=== PATIENT | female | born 1975 | race Two or more races ===

== ENCOUNTER 2024-08-14 16:00 | Inpatient (IN) | payer MEDICAID ==
[~2024-08-14] VITALS: Ht 162.6 cm; Wt 92.7 kg
[~2024-08-14 16:00] MED LIST: ACET-1603 PO
[2024-08-14] MEDS: MAALOX PLUS or MAALOX 30 ML PO ONE (16:30)
[2024-08-14] MEDS: LIDOCAINE VISCOUS 2% 15ML UD PO ONE (16:30)
[2024-08-14] MEDS: ONDANSETRON ODT 4 MG TAB PO ONE (16:30)
[2024-08-14] MEDS: DONNATAL 5ml ORAL Elix (BELLADONNA ALK-PHENOBARB) PO ONE (16:30)
--- NOTE | 2024-08-14 16:34 | ED.PDOC ---
GI ASSESSMENT HPI Comments 49-year-old female presents with a chief complaint of abdominal pain x 2 days with associated back pain. Patient states that her pain is localized to her suprapubic region, radiating to her lower back, and rates her pain a /10. Patient mentions that she recently had her Ozempic dosage increased and believes that may be the cause of her pain. Patient mentions that she went to urgent care first and provided a urine sample, and mentions that her urine was orange tinged. No other symptoms or modifying factors present at this time. Chief Complaint: Abdominal Pain Time Seen by MD: 16:17 Primary Care Provider: LOREN Osorio Notes: Medications, Allergies Allergies: Coded Allergies: NO KNOWN ALLERGIES (Unverified , 03/08/10) Home Meds Reported Medications Acetaminophen W/ Codeine (Tylenol/Codeine #3) #3 Tab, PO 08/30/11 Information Source: Patient Mode of Arrival: Ambulatory Timing: Days Duration: Since onset Prehospital treatment: None Quality: Cramping Vomitus: None Stool: Normal Severity: Moderate Recent: Other (Ozempic Dosage Increased ) Recent Hx of: None Pain Location: Suprapubic Associated sign and symptoms: Abdominal Pain Past Medical History PAST MEDICAL HISTORY: Anemia Surgical History: RESIDENT INTERN History: No Pertinent RESIDENT INTERN History Family History Family History: Unobtainable Social History Smoker: Non-Smoker Alcohol: Occasionally Drugs: Denies Drug Use Lives In: Home Constitutional: denies: chills, diaphoresis, fatigue, fever, malaise, sweats, weakness, others EENTM: denies: blurred vision, double vision, ear bleeding, ear discharge, ear drainage, ear pain, ear ringing, eye pain, eye redness, hearing loss, mouth pain, mouth swelling, nasal discharge, nose bleeding, nose congestion, nose pain, photophobia, tearing, throat pain, throat swelling, voice changes, others Respiratory: denies: cough, hemoptysis, orthopnea, SOB at rest, shortness of breath, SOB with excertion, stridor, wheezing, others Cardiovascular: denies: chest pain, dizzy spells, diaphoresis, Dyspnea on exertion, edema, irregular heart beat, left arm pain, lightheadedness, palpitations, PND, syncope, others Gastrointestinal: reports: abdominal pain; denies: abdomen distended, blood streaked bowels, constipated, diarrhea, dysphagia, difficulty swallowing, hematemesis, melena, nausea, poor appetite, poor fluid intake, rectal bleeding, rectal pain, vomiting, others Genitourinary: denies: abnormal vagina bleeding, burning, dyspareunia, dysuria, flank pain, frequency, hematuria, incontinence, pain, , vagina discharge, urgency, others Neurological: denies: dizziness, fainting, headache, left sided numbness, left sided weakness, numbness, paresthesia, pre-existing deficit, right sided numbnes s, right sided weakness, seizure, speech problems, tingling, tremors, weakness, others Musculoskeletal: reports: back pain; denies: gout, joint pain, joint swelling, muscle pain, muscle stiffness, neck pain, others Integumetry: denies: bruises, change in color, change in hair/nails, dryness, laceration, lesions, lumps, rash, wounds, others Allergic/Immunocompromised: denies: Difficulty Healing, Frequent Infections, Hives, Itching, others Hematologic/Lymphatic: denies: anemia, blood clots, easy bleeding, easy bruising, swollen glands, others Endocrine: denies: excessive hunger, excessive sweating, excessive thirst, excessive urination, flushing, intolerance to cold, intolerance to heat, unexplained weight gain, unexplained weight loss, others Psychiatric: denies: anxiety, bipolar disorder, depression, hopeless, panic disorder, schizophrenia, sleepless, suicidal, others All Other Systems: Reviewed and Negative Physical Exam General Appearance: Moderate Distress, Normal HEENT: Normal ENT Inspection Neck: NOT DONE Respiratory: NOT DONE Cardiovascular: NOT DONE Breast Exam: Deferred Gastrointestinal: Soft, Suprapubic, Tenderness Genitalia: Deferred Pelvic: Deferred Rectal: Deferred Extremities: No calf tenderness, Normal capillary refill, Normal inspection, Normal range of motion, Non-tender, No pedal edema Neurologic: Alert, solid waste technician II-XII nml as Tested, No Motor Deficits, Normal Affect, Normal Mood, No Sensory Deficits Cerebellar Function: NOT DONE Reflexes: NOT DONE Skin: Dry, Normal Color Lymphatic: NOT DONE Was a procedure done? Was a procedure done?: No GI differential Dx Differential Diagnosis: Appendicitis, Bowel Obstruction, Cholangitis, Cholecystitis, Constipation, Diverticular disease, GI hemorrhage, Hernia, Ischemic Bowel, Urinary Obstruction, UTI X-Ray, Labs, Meds, VS Vital Signs Date Time Temp Pulse Resp B/P (MAP) Pulse Ox O2 Delivery O2 Flow Rate FiO2 08/14/24 18:41 97 18 97 Room Air* 0 21 08/14/24 18:36 97 16 87/45 08/14/24 17:04 125 17 96 Room Air 08/14/24 17:04 98.5 125 17 106/56 (73) 96 98.5 08/14/24 16:24 99.7 124 15 107/72 (84) 99 Lab Test 08/14/24 16:51 08/14/24 16:00 Range/Units White Blood Count 17.8 H 4.4-10.8 10^3/uL Red Blood Count 5.52 H 4.0-5.20 10^6/uL Hemoglobin 15.9 12.2-16.2 g/dL Hematocrit 47.7 H 36.0-46.0 % Mean Corpuscular Volume 86.5 80.0-100.0 fL Mean Corpuscular Hemoglobin 28.9 28.0-32.0 pg Mean Corpuscular Hemoglobin Concent 33.4 32.0-36.0 g/dL Red Cell Distribution Width 14.1 11.8-14.3 % Platelet Count 411 140-450 10^3/uL Mean Platelet Volume 8.6 6.9-10.8 fL Neutrophils (%) (Auto) 72.6 37.0-80.0 % Lymphocytes (%) (Auto) 18.1 10.0-50.0 % Monocytes (%) (Auto) 8.2 0.0-12.0 % Eosinophils (%) (Auto) 0.5 0.0-7.0 % Basophils (%) (Auto) 0.6 0.0-2.0 % Neutrophils # (Auto) 12.9 H 1.6-8.6 10 ^3/uL Lymphocytes # (Auto) 3.2 0.4-5.4 10 ^3/uL Monocytes # (Auto) 1.5 H 0-1.3 10 ^3/uL Eosinophils # (Auto) 0.1 0-0.8 10 ^3/uL Basophils # (Auto) 0.1 0-0.2 10 ^3/uL Nucleated Red Blood Cells 0.0 % Sodium Level 138 136-145 mmol/L Potassium Level 4.5 3.5-5.1 mmol/L Chloride Level 101 98-107 mmol/L Carbon Dioxide Level 29 20-31 mmol/L Anion Gap 8 5-15 Blood Urea Nitrogen 11 9-23 mg/dL Creatinine 0.99 0.550-1.02 mg/dL Glomerular Filtration Rate Calc 69 >90 mL/min BUN/Creatinine Ratio 11.1 10.0-20.0 Serum Glucose 111 H 74-106 mg/dL Lactic Acid Level 1.1 0.4-2.0 mmol/L Calcium Level 10.7 H 8.7-10.4 mg/dL Total Bilirubin 2.8 H 0.2-1.0 mg/dL Aspartate Amino Transferase (AST) 38 13-40 U/L Alanine Aminotransferase (ALT) 44 H 7-40 U/L Alkaline Phosphatase 130 H 46-116 U/L Troponin I High Sensitivity 3 L </=34 ng/L Total Protein 7.2 5.7-8.2 g/dL Albumin 4.6 3.2-4.8 g/dL Lipase 22 12-53 U/L Urine Color Dark-orange Yellow Urine Clarity Turbid H Clear Urine pH 6.0 5.0-9.0 Urine Specific Seltzer 1.029 1.001-1.035 Urine Protein 1+ H Negative Urine Ketones Trace Negative Urine Blood 1+ H Negative /uL Urine Nitrite Negative Negative Urine Bilirubin 1+ H Negative Urine Urobilinogen 4 H Negative mg/dL Urine Leukocyte Esterase 3+ Negative /uL Urine RBC 7 0 - 4 /hpf Urine Microscopic WBC 51 H 0-5 /HPF Urine Squamous Epithelial Cells Mod <5 /hpf Urine Bacteria Few H None Seen /hpf Urine Hyaline Casts Few 0 - 2 /lpf Urine Mucus Few None Seen Urine Glucose Trace Normal mg/dL Urine Test Negative Negative Current Medications Medications (Trade) Dose Ordered Sig/Andres Route Start Time Stop Time Status Last Admin Ondansetron HCl (Zofran Po) 4 mg ONCE ONCE PO 08/14/24 16:30 08/14/24 16:36 DC 08/14/24 16:30 Al Hydrox/Mg Hydrox/Simethicone (Maalox Plus) 30 ml ONCE ONCE PO 08/14/24 16:30 08/14/24 16:37 DC 08/14/24 16:30 Belladonna Alkaloids/ Phenobarbital ( Elixir) 5 ml ONCE ONCE PO 08/14/24 16:30 08/14/24 16:37 DC 08/14/24 16:30 Lidocaine HCl (Xylocaine 2% Viscous) 15 ml ONCE ONCE PO 08/14/24 16:30 08/14/24 16:37 DC 08/14/24 16:30 Ceftriaxone Sodium 50 ml @ 100 mls/hr ONCE ONCE IV 08/14/24 18:15 08/14/24 18:44 DC 08/14/24 18:36 Sodium Chloride 2,000 ml @ 1,000 mls/hr Q2H ONCE IV 08/14/24 18:45 08/14/24 20:44 DC 08/14/24 18:36 Ketorolac Tromethamine (Toradol Injection) 15 mg ONCE ONCE IV 08/14/24 20:00 08/14/24 20:01 DC 08/14/24 20:12 X-Ray, Labs, Meds, VS Comment This 49-year-old female presents secondary to suprapubic abdominal pain with question of radiation to bilateral lower back. She states she recently started Ozempic in taking medication, has intermittent cramping. She also endorses have a history UTI. However, she denies dysuria or urinary frequency. She states she has some discomfort with urination only. She endorses her current pain is more severe than previously. She took a 1 day course of antibiotics that she had from a previous UTI with worsening of her symptoms. As such, she presents here. She denied fever, chills, sweats, nausea or vomiting. Her UA is positive for leukocyte esterase and blood. It was suggestive of UTI. She was the 1 g of Rocephin. I spoke with radiologist just prior to shift change his states the patient has a soft tissue mass in the pelvis. He recommended a CT of the abdomen and pelvis with contrast. This was ordered. Patient was signed out to the oncoming physician. Time of 1ST Reevaluation: 16:47 Reevaluation 1ST: Unchanged Patient Education/Counseling: Diagnosis, Treatment, Prognosis Family Education/Counseling: Diagnosis, Treatment, Prognosis Departure 1 Departure Time of Disposition: 20:52 (Patient presented with abdominal pain that was concerning for possible appendicits, gastritis, cholecystitis, colitis, gastroenteritis, sbo, or orther possible surgical emergency. Data: 1. I ordered and reviewed the result of at least 3 labs including a CBC, BMP, and Urinalysis. 2. I independently interpreted the following tests: CT Abdoment and Pelvis is concerning for ovarian cancer .Risk:This patient has a high risk of morbidity due to further diagnostic testing or treatment and may suffer from an acute abdominal process disorder. Workup reveals concern for malignancy and patient should be admitted for further workup. and possible expert consultation. ) Impression: Primary Impression: Ovarian mass, right Additional Impression: Acute cystitis Qualified Codes: N30.01 - Acute cystitis with hematuria Disposition: ADMITTED INPATIENT Admit to: Med Surg Condition: Serious Critical Care Note Critical Care Time?: Yes Critical care comment: Intractable abdominal pain Authorized and Performed by: Alexy Barry MD Total critical care time: Approximately 34 minutes Due to a high probability of clinically significant, life threatening deterioration, the patient required my highest level of preparedness to intervene emergently and I personally spent this critical care time directly and personally managing the patient. This critical care time included obtaining a history; examining the patient; pulse oximetry; ordering and review of studies; arranging urgent treatment with development of a management plan; evaluation of patient's response to treatment; frequent reassessment; and, discussions with other providers. This critical care time was performed to assess and manage the high probability of imminent, life-threatening deterioration that could result in multi-organ failure. It was exclusive of separately billable procedures and treating other patients and teaching time. Please see my other sections and the rest of the note for further information on patient assessment and treatment. Stability Stability form required: No Heart Score Heart Score: Heart Score Response (Comments) Value History N/A 0 EKG N/A 0 Age N/A 0 Risk Factors N/A 0 Troponin N/A 0 Total 0 I personally scribed for SHEYLA RAMOS MD ([email or web address]) on 08/14/24 at 16:34. Electronically submitted by Pankaj Tiwari ([email or web address]). SHEYLA RAMOS MD Aug 14, 2024 16:34 ALEXY BARRY MD Aug 14, 2024 20:55
[2024-08-14 17:07] LABS: Basophils # (auto) 0.1 10 ^3/uL (0-0.2); Basophils % (auto) 0.6 % (0.0-2.0); Eosinophils # (auto) 0.1 10 ^3/uL (0-0.8); Eosinophils % (auto) 0.5 % (0.0-7.0); Hematocrit 47.7 % (36.0-46.0); Hemoglobin 15.9 g/dL (12.2-16.2); Lymphocytes # (auto) 3.2 10 ^3/uL (0.4-5.4); Lymphocytes % (auto) 18.1 % (10.0-50.0); Mean Corpuscular Hemoglobin 28.9 pg (28.0-32.0); Mean Corpuscular Hgb Conc. 33.4 g/dL (32.0-36.0); Mean Corpuscular Volume 86.5 fL (80.0-100.0); Monocytes # (auto) 1.5 10 ^3/uL (0-1.3); Monocytes % (auto) 8.2 % (0.0-12.0); Neutrophils # (auto) 12.9 10 ^3/uL (1.6-8.6); Neutrophils % (auto) 72.6 % (37.0-80.0); Platelet Count (auto) 411 10^3/uL (140-450); Red Blood Cells 5.52 10^6/uL (4.0-5.20); Red Cell Distribution Width 14.1 % (11.8-14.3); White Blood Cell 17.8 10^3/uL (4.4-10.8)
[2024-08-14 17:11] LABS: Urine Bacteria FEW /hpf (None Seen); Urine Blood 1+ /uL (Negative); Urine Clarity Turbid (Clear); Urine Color Dark-Orange (Yellow); Urine Hyaline Cast FEW /lpf (0 - 2); Urine Mucus FEW (None Seen); Urine Protein, UAD 1+ (Negative); Urine Specific Gravity 1.029 (1.001-1.035); Urine Squamous Epithelial Cell MOD /hpf (<5); Urine Urobilinogen 4 mg/dL (Negative); Urine WBC 51 /HPF (0-5)
[2024-08-14 17:19] LABS: Albumin 4.6 g/dL (3.2-4.8); Anion Gap 8 (5-15); Aspartate Aminotransferase 38 U/L (13-40); BUN/Creatinine Ratio 11.1 (10.0-20.0); Blood Urea Nitrogen 11 mg/dL (9-23); Carbon Dioxide 29 mmol/L (20-31); Chloride 101 mmol/L (98-107); Lipase 22 U/L (12-53); Potassium 4.5 mmol/L (3.5-5.1); Sodium 138 mmol/L (136-145)
[2024-08-14 17:20] LABS: Alanine Aminotransferase 44 U/L (7-40); Alkaline Phosphatase 130 U/L (46-116); Bilirubin, Total 2.8 mg/dL (0.2-1.0); Calcium 10.7 mg/dL (8.7-10.4); Glucose 111 mg/dL (74-106); Total Protein 7.2 g/dL (5.7-8.2)
[2024-08-14] MEDS ORDERED: cefTRIAXone W LIDOCAINE 1 GM IM IM ONE (17:30)
--- NOTE | 2024-08-14 18:03 | DVH ---
EXAM: CT Abdomen and Pelvis Without Intravenous Contrast CLINICAL INDICATION: pain TECHNIQUE: Axial computed tomography images of the abdomen and pelvis without intravenous contrast. This CT exam was performed using one or more of the following dose reduction techniques: automated exposure control, adjustment of the mA and/or kV according to patient size, and/or use of iterative r econstruction technique. CONTRAST: COMPARISON: None FINDINGS: LUNG BASES: Unremarkable. No mass. No consolidation. ABDOMEN: LIVER: Hepatomegaly with fatty infiltration. GALLBLADDER AND BILE DUCTS: Unremarkable. No calcified stones. No ductal dilation. PANCREAS: Unremarkable. No ductal dilation. SPLEEN: Unremarkable. No splenomegaly. ADRENALS: Unremarkable. No mass. KIDNEYS AND URETERS: Unremarkable. No obstructing stones. No hydronephrosis. STOMACH AND BOWEL: Unremarkable. No obstruction. No mucosal thickening. PELVIS: APPENDIX: No findings to suggest acute appendicitis. BLADDER: Unremarkable. No stones. REPRODUCTIVE: Unremarkable as visualized. ABDOMEN and PELVIS: INTRAPERITONEAL SPACE: Ill-defined isodense lesion in the anterior pelvis measures up to 10.8 cm co uld represent neoplastic process. Further evaluation with multiphasic CT abdomen and pelvis is recomm ended. No free air. No significant fluid collection. BONES/JOINTS: No acute fracture. No dislocation. SOFT TISSUES: Unremarkable. VASCULATURE: Unremarkable. No abdominal aortic aneurysm. LYMPH NODES: Unremarkable. No enlarged lymph nodes. OTHER FINDINGS: . None. . .. IMPRESSION: 1. Ill-defined isodense lesion in the anterior pelvis measures up to 10.8 cm could represent neoplas tic process. Further evaluation with multiphasic CT abdomen and pelvis is recommended. 2. Hepatomegaly with fatty infiltration. Findings were discussed with Dr. Arthur by phone on 08/14/2024 at 6:00 p.m.
[2024-08-14] MEDS: cefTRIAXone 1GM/50ML D5W 50 ML IV ONE (18:36)
[2024-08-14] MEDS: SODIUM CHLORIDE 0.9% 2,000 ML IV ONE (18:36)
[2024-08-14] MEDS: ONDANSETRON HCL 4 MG/2 ML VIAL IV ONE (18:36)
[2024-08-14] MEDS: MORPHINE SULFATE 4 MG/ML SYR/VIAL IV ONE (18:36)
[2024-08-14 18:41] VITALS: PULSE 97; RESP 18; O2SAT 97
[2024-08-14] MEDS: IOHEXOL 300 MG/ML 100ML BOTTLE IJ ONE (19:00)
[2024-08-14 19:30] VITALS: PULSE 104; RESP 18; O2SAT 94
--- NOTE | 2024-08-14 19:33 | DVH ---
Procedure: CT CT AB PEL WITH IV CON ONLY 08/14/2024 07:00 PM Indication: pelvic mass Comparison Study: CT scan dated 08/14/2024 Technique: Axial images were obtained and reformatted in coronal and sagittal planes after administra tion of intravenous contrast. All CT scans at this medical facility are performed using dose modulation techniques as appropriate t o a performed exam including the following: Automated exposure control was utilized; adjustment of th e MA and/or KV according to patient size; and use of iterative reconstruction technique. CT Dose: CTDI volume is 18 mGy. Dose-length product is 1030 mGy*cm FINDINGS: Lower neck: Unremarkable. Cardiomediastinal: The heart is normal in size. Aorta is normal in caliber. No mediastinal lymphadeno alex. Lungs: No focal pulmonary opacity. No pleural effusion. No pneumothorax. Hepatobiliary: Unremarkable. Spleen: Unremarkable. Pancreas: Unremarkable. Adrenal Glands: Unremarkable. tract: The kidneys are normal in size bilaterally without hydronephrosis or nephrolithiasis. The urinary bladder is unremarkable. GI tract: The stomach is grossly normal in appearance. Nondistended fluid-filled small bowel loops ar e seen in the left hemiabdomen and lower abdomen with mild adjacent mesenteric edema. Trace fluid is seen in the lower abdomen. No evidence of small bowel obstruction. There is sigmoid diverticulosis w ithout diverticulitis. The appendix is normal. Lymphatics: No mesenteric, retroperitoneal or periportal lymphadenopathy. Vasculature: The abdominal aorta is normal in in caliber. Pelvic Organs: Redemonstration of large, 11.3 x 7.8 cm multi-septated pelvic mass anterior and superi or to the uterus abutting bilateral ovaries with moderate surrounding fat stranding. Small amount of free fluid is seen in the cul-de-sac. Bones/soft tissues: No acute abnormality. Other: None. IMPRESSION: 1. Nondistended fluid-filled small bowel loops in mid to lower abdomen with mild adjacent mesenteric edema that may represent ileus, enteritis or developing obstruction. Correlate clinically. No evidenc e of perforation. 2. Redemonstration of complex multi septated 11.3 cm pelvic mass abutting the bilateral ovaries with moderate surrounding fat stranding concerning for ovarian malignancy. Differential diagnosis include s tubo-ovarian abscess. Recommend clinical and biochemical correlation. Further evaluation with pelvi c ultrasound, female pelvis MRI without and with IV contrast could be completed if clinically warrant ed.
[2024-08-14] MEDS: KETOROLAC TROMETH 30 MG/ML 1ML VIAL IV ONE (20:12)
[2024-08-14] MEDS: VANCOMYCIN 1GM/250ML KIT 200 ML IV ONE (21:40)
[2024-08-14 22:01] LABS: Triglycerides 111 mg/dL (< 150)
[2024-08-14 22:03] LABS: Cholesterol 168 mg/dL (< 200); HDL Cholesterol 48 mg/dL (40-59); LDL Cholesterol 105 mg/dL (< 100)
--- NOTE | 2024-08-14 22:25 | DVHHPRES ---
History of Present Illness Resident Creating Document: FLOYD MELGAR RESIDENT History of Present Illness This is a 49-year-old female with past medical history of prediabetes, hyperlipidemia who presented to the ED with chief complaint of lower abdominal/pelvic pain. The patient states that pain started on 08/12/2024 and it was localized in the pelvic/pubic area radiating to bilateral left and right lower quadrants and back. Patient described the pain as aching/stabbing in nature, constant and rated as a 10/10 on the pain scale on admission. Patient states that moving around lying down makes the pain worse but resting without movement makes it better. Patient also reported fever/chills that started on 08/10/2024 before the appearance of the lower pelvic pain. Patient states that last bowel movement was performed today in the a.m. initial labs showed a WBC of 17.8, hemoglobin and hematocrit are stable and BNP is grossly unremarkable. Troponins came back negative and lipase was normal range. Initial CT scan of the abdomen and pelvis without contrast show a ill-defined lesion of 10.8 cm that could represent a neoplastic process. We will perform a CT of the abdomen and pelvis with contrast which showed a fluid-filled small bowel loops in mid to lower abdomen with mild adjacent mesenteric edema that could represent ileus or enteritis. There is also a complex multiseptated 11.3 cm pelvic mass abutting the bilateral ovaries with moderate surrounding fat concerning for ovarian malignancy. Upon the differentials could be also tubo-ovarian abscess. Upon my examination, there is moderate to severe tenderness to palpation in the suprapubic area and right and left lower quadrants of the abdomen. The patient was started on IV fluids, ceftriaxone plus doxycycline plus metronidazole. We will admit the patient for further assessment and management. Past medical history: Prediabetes, dyslipidemia Past surgical History: 2 C- sections in 2004 and 2009 No home medications per patient, only Ozempic Past social history: Alcohol occasionally, no smoking or drugs and lives with the family. Patient is full code Cardiovascular: hyperipidemia Endocrine: Other (prediabetes) Past Surgical History: None Family History: None Smoke: No ALCOHOL: occassional Drugs: None Lives: with Family Domestic Violence: Neg Review of Systems Constitutional: No: Fever, Chills, Sweats, Weakness, Malaise, Other Eyes: No: Pain, Vision change, Conjunctivae inflammation, Eyelid inflammation, Other, Redness ENT: No: Ear pain, Ear discharge, Nose pain, Nose discharge, Nose congestion, Mouth pain, Mouth swelling, Throat pain, Throat swelling, Other Respiratory: No: Cough, Dry, Shortness of breath, SOB with excertion, Wheezing, Hemoptysis, Pleuritic Pain, Sputum, Wheezing, Other Cardiovascular: No: Chest Pain, Palpitations, Orthopnea, Paroxysmal Noc. Dyspnea, Edema, Lt Headedness, Other Gastrointestinal: Abdominal Pain, Other (Lower suprapubic pain that radiates to the right and left lower abdominal quadrants); No: Nausea, Vomiting, Diarrhea, Constipation, Melena, Hematochezia Genitourinary: No Dysuria, No Frequency, No Incontinence, No Hematuria, No Retention, No Other Musculoskeletal: No: other, neck pain, shoulder pain, arm pain, back pain, hand pain, leg pain, foot pain Skin: No: Rash, Lesions, Jaundice, Bruising, Other Neurological: No: Weakness, Numbness, Incoordination, Change in speech, Confusion, Seizures, Other Allergies: Coded Allergies: NO KNOWN ALLERGIES (Unverified , 03/08/10) Medications Current Medications Medications Dose Ordered Sig/Andres Route Start Time Stop Time Status Last Admin Dose Admin Acetaminophen 650 mg Q6HP PRN PO 08/14/24 21:45 UNV Ceftriaxone Sodium 50 ml @ 100 mls/hr DAILY IV 08/15/24 10:00 UNV Doxycycline Hyclate 100 ml @ 50 mls/hr BID IV 08/14/24 22:00 UNV Metronidazole 100 ml @ 100 mls/hr BID IV 08/14/24 22:00 UNV Ketorolac Tromethamine 15 mg Q6HP PRN IV 08/14/24 22:00 08/19/24 21:59 UNV Exam Vital Signs Vital Signs Date Time Temp Pulse Resp B/P (MAP) Pulse Ox O2 Delivery O2 Flow Rate FiO2 08/14/24 18:41 97 18 97 Room Air* 0 21 08/14/24 18:36 87/45 08/14/24 17:04 98.5 98.5 General Appearance: Alert, Oriented X3, Cooperative, No acute distress HEENT: Atraumatic, PERRLA, EOMI, Mucous membr. moist/pink Respiratory: Clear to auscultation, Normal air movement Cardiovascular: Regular rate, Normal S1, Normal S2, No murmurs Abdominal: Normal bowel sounds, Soft, Other (There is tenderness to palpation in the suprapubic area/hypogastrium that radiates to right and left lower quadrants of the abdomen.) Extremities: No clubbing, No cyanosis, No edema, Normal pulses, No tenderness/swelling Skin: No rashes, No breakdown, No significant lesion Neuro: Normal gait, Normal speech, Strength at 5/5 X4 ext, Normal tone, Sensation intact, Cranial nerves 3-12 NL, Reflexes 2+ Psych/Mental Status: Mental status NL, Mood NL Labs/Xrays Labs Test 08/14/24 16:51 08/14/24 16:00 Range/Units White Blood Count 17.8 H 4.4-10.8 10^3/uL Red Blood Count 5.52 H 4.0-5.20 10^6/uL Hemoglobin 15.9 12.2-16.2 g/dL Hematocrit 47.7 H 36.0-46.0 % Mean Corpuscular Volume 86.5 80.0-100.0 fL Mean Corpuscular Hemoglobin 28.9 28.0-32.0 pg Mean Corpuscular Hemoglobin Concent 33.4 32.0-36.0 g/dL Red Cell Distribution Width 14.1 11.8-14.3 % Platelet Count 411 140-450 10^3/uL Mean Platelet Volume 8.6 6.9-10.8 fL Neutrophils (%) (Auto) 72.6 37.0-80.0 % Lymphocytes (%) (Auto) 18.1 10.0-50.0 % Monocytes (%) (Auto) 8.2 0.0-12.0 % Eosinophils (%) (Auto) 0.5 0.0-7.0 % Basophils (%) (Auto) 0.6 0.0-2.0 % Neutrophils # (Auto) 12.9 H 1.6-8.6 10 ^3/uL Lymphocytes # (Auto) 3.2 0.4-5.4 10 ^3/uL Monocytes # (Auto) 1.5 H 0-1.3 10 ^3/uL Eosinophils # (Auto) 0.1 0-0.8 10 ^3/uL Basophils # (Auto) 0.1 0-0.2 10 ^3/uL Nucleated Red Blood Cells 0.0 % Sodium Level 138 136-145 mmol/L Potassium Level 4.5 3.5-5.1 mmol/L Chloride Level 101 98-107 mmol/L Carbon Dioxide Level 29 20-31 mmol/L Anion Gap 8 5-15 Blood Urea Nitrogen 11 9-23 mg/dL Creatinine 0.99 0.550-1.02 mg/dL Glomerular Filtration Rate Calc 69 >90 mL/min BUN/Creatinine Ratio 11.1 10.0-20.0 Serum Glucose 111 H 74-106 mg/dL Lactic Acid Level 1.1 0.4-2.0 mmol/L Calcium Level 10.7 H 8.7-10.4 mg/dL Total Bilirubin 2.8 H 0.2-1.0 mg/dL Aspartate Amino Transferase (AST) 38 13-40 U/L Alanine Aminotransferase (ALT) 44 H 7-40 U/L Alkaline Phosphatase 130 H 46-116 U/L Troponin I High Sensitivity 3 L </=34 ng/L Total Protein 7.2 5.7-8.2 g/dL Albumin 4.6 3.2-4.8 g/dL Lipase 22 12-53 U/L Urine Color Dark-orange Yellow Urine Clarity Turbid H Clear Urine pH 6.0 5.0-9.0 Urine Specific Colo 1.029 1.001-1.035 Urine Protein 1+ H Negative Urine Ketones Trace Negative Urine Blood 1+ H Negative /uL Urine Nitrite Negative Negative Urine Bilirubin 1+ H Negative Urine Urobilinogen 4 H Negative mg/dL Urine Leukocyte Esterase 3+ Negative /uL Urine RBC 7 0 - 4 /hpf Urine Microscopic WBC 51 H 0-5 /HPF Urine Squamous Epithelial Cells Mod <5 /hpf Urine Bacteria Few H None Seen /hpf Urine Hyaline Casts Few 0 - 2 /lpf Urine Mucus Few None Seen Urine Glucose Trace Normal mg/dL Urine Test Negative Negative Assessment/Plan Assessment/Plan Assessment/plan Acute lower abdominal pain likely due to tubo-ovarian abscess, R/O ovarian malignancy Ruled out pancreatitis -suprapubic tenderness that radiates to bilateral left and right lower abdominal quadrants -patient reported previous fever and chills a couple of days ago -initial WBC was 17.8 -lipase was 22 -Ordered Beta-Hcg -Ordered Pelvic US -start IV ceftriaxone -start IV metronidazole -start IV doxycycline -start IV fluids at 100 cc/hour -pain modulation with acetaminophen and ketorolac 15 mg IV q.6 p.r.n. -Consult OBGYN UTI -U/A suggesting UTI -IV ceftriaxone Prediabetes -Ordered HbA1c -Monitor BG closely Dyslipidemia -Ordered lipid panel Goals of care discussed with the patient at bedside for >23min, FULL CODE Plan Discussed with Dr. Torres Plan discussed with: Patient My Orders Orders - FLOYD MELGAR Procedure Category Date Status Time Admit ADMIT 08/14/24 Transmitted 21:37 Code Status CODE 08/14/24 Transmitted 21:37 Vital Signs JUAN 08/14/24 In Process 21:37 Review Orders With JUAN 08/14/24 In Process Adm.Md 21:37 Regular Diet DIET 08/15/24 Transmitted Breakfast Acetaminophen Tablet PHA 08/14/24 Logged (Tylenol Tablet) 21:45 Notify Md Of Changes JUAN 08/14/24 In Process From Base 21:37 Advance Directive JUAN 08/14/24 In Process 21:37 Lipid Panel LAB 08/14/24 In Process 21:37 Urine Bacterial TALISHA 08/14/24 In Process Culture 21:37 Patient Condition ORDERS 08/14/24 Transmitted 21:37 Allergies JUAN 08/14/24 In Process 21:37 Drug Screen LAB 08/14/24 Logged 21:37 Hemoglobin A1c LAB 08/14/24 In Process 21:37 Ceftriaxone 1gm/50ml PHA 08/15/24 Logged D5w (Rocephin) 10:00 Doxycycline PHA 08/14/24 Logged 100mg/100ml 22:00 Metronidazole PHA 08/14/24 Logged 500mg/100ml (Flagyl 22:00 Sodium Chloride 0.9% PHA 08/14/24 Logged 22:00 Ketorolac Injection PHA 08/14/24 Logged (Toradol Injection) 22:00 Beta Hcg, Quantitative LAB 08/14/24 In Process 21:51 * Studio Operation Engineer Consultation CONS 08/14/24 Transmitted 21:52 Date of Service: Aug 14, 2024 Billing Provider: KARINE TORRES MD Common Visit Codes: [id number] INP/OBS CARE (HIGH) FLOYD MELGAR RESIDENT Aug 14, 2024 22:25 KARINE TORRES MD Aug 17, 2024 16:20
[2024-08-14] MEDS: ACETAMINOPHEN 325 MG TAB PO PRN (22:53)
[2024-08-14] MEDS: KETOROLAC TROMETH 30 MG/ML 1ML VIAL IV PRN (22:53)
[2024-08-14] MEDS: SODIUM CHLORIDE 0.9% 1,000 ML IV ONE (23:00)
[2024-08-15] MEDS: metroNIDAZOLE 500MG/100ML 100 ML IV SCH (00:50)
--- NOTE | 2024-08-15 01:46 | DVH ---
INDICATION: possible tubo-ovarian abscess TECHNIQUE: Multiple real-time grayscale transabdominal sonographic images along with color and duplex Doppler of the uterus and ovaries were obtained. COMPARISON: None FINDINGS: The uterus measures approximately 8.4 x 4.6 x 5.5 cm and demonstrates diffusely coarsened and hetero geneous echogenicity likely related to fibroids. The endometrium is within normal limits measuring ap proximately 4.5 mm. Small 8 mm nabothian cyst noted in the cervix. Neither of the ovaries could be identified. No evidence of pelvic mass or fluid collection. IMPRESSION: Uterus demonstrates diffusely coarsened and heterogeneous echogenicity likely related to fibroids. Neither of the ovaries could be identified. No evidence of pelvic mass or fluid collection.
[2024-08-15] MEDS: DOXYCYCLINE 100MG/100ML 100 ML IV SCH (01:56)
[2024-08-15 02:30] VITALS: BP 96/45; PULSE 79; RESP 18; TEMP 97.8; O2SAT 95
[2024-08-15 02:46] VITALS: PULSE 79; RESP 18; O2SAT 95
[2024-08-15] MEDS ORDERED: CHOL20003 PO (02:57)
[2024-08-15] MEDS ORDERED: SEMA1INJ2 (02:57)
[2024-08-15] MEDS ORDERED: TRAM50TA2 (02:57)
[2024-08-15] MEDS ORDERED: IBUP-1455 (02:57)
[2024-08-15 05:00] VITALS: BP 96/51; PULSE 90; RESP 17; TEMP 98.7; O2SAT 95
[2024-08-15 09:00] VITALS: BP 92/55; PULSE 80; RESP 18; TEMP 98.2; O2SAT 96
[2024-08-15 09:46] LABS: INR 1.06 (0.9-1.15); Partial Thromboplastin Time 31.1 SEC (24.5-34.5); Prothrombin Time 11.2 sec (9.3-11.8)
[2024-08-15 09:49] LABS: Albumin 3.8 g/dL (3.2-4.8); Anion Gap 8 (5-15); Blood Urea Nitrogen 16 mg/dL (9-23); Calcium 9.5 mg/dL (8.7-10.4); Carbon Dioxide 23 mmol/L (20-31); Glucose 97 mg/dL (74-106); Magnesium 1.8 mg/dL (1.6-2.6); Phosphorus 3.3 mg/dL (2.4-5.1); Sodium 140 mmol/L (136-145)
[2024-08-15 09:50] LABS: Total Protein 6.1 g/dL (5.7-8.2)
[2024-08-15 09:51] LABS: Alanine Aminotransferase 106 U/L (7-40); Alkaline Phosphatase 137 U/L (46-116); Aspartate Aminotransferase 141 U/L (13-40); Bilirubin, Total 1.7 mg/dL (0.2-1.0); Chloride 109 mmol/L (98-107)
[2024-08-15] MEDS: cefTRIAXone 1GM/50ML D5W 50 ML IV SCH (10:02)
[2024-08-15 10:27] LABS: Basophils # (auto) 0.1 10 ^3/uL (0-0.2); Basophils % (auto) 0.5 % (0.0-2.0); Eosinophils # (auto) 0.1 10 ^3/uL (0-0.8); Eosinophils % (auto) 1.2 % (0.0-7.0); Hematocrit 38.2 % (36.0-46.0); Hemoglobin 12.7 g/dL (12.2-16.2); Lymphocytes # (auto) 1.8 10 ^3/uL (0.4-5.4); Lymphocytes % (auto) 16.1 % (10.0-50.0); Mean Corpuscular Hemoglobin 29.3 pg (28.0-32.0); Mean Corpuscular Hgb Conc. 33.3 g/dL (32.0-36.0); Mean Corpuscular Volume 87.8 fL (80.0-100.0); Monocytes # (auto) 1.1 10 ^3/uL (0-1.3); Monocytes % (auto) 9.8 % (0.0-12.0); Neutrophils # (auto) 8.2 10 ^3/uL (1.6-8.6); Neutrophils % (auto) 72.4 % (37.0-80.0); Platelet Count (auto) 326 10^3/uL (140-450); Red Blood Cells 4.35 10^6/uL (4.0-5.20); Red Cell Distribution Width 14.4 % (11.8-14.3); White Blood Cell 11.4 10^3/uL (4.4-10.8)
[2024-08-15 13:00] VITALS: BP 118/72; PULSE 83; RESP 18; TEMP 98.2; O2SAT 96
[2024-08-15] MEDS ORDERED: EZ PAQUE SUSP 12OZ BTL ONE (15:07)
[2024-08-15] MEDS ORDERED: GADOTERATE MEG 7.5 MMOL/15ml INJ (0.5MMOL/ml) IV ONE (15:07)
[2024-08-15] MEDS: MORPHINE SULFATE INJ 2 MG/ml SYRG IV PRN (19:36)
--- NOTE | 2024-08-15 20:50 | DVHPNRES ---
Progress Note Date Seen: Aug 15, 2024 Resident Creating Document: LOS LOPEZ RESIDENT Medical Necessity Reason Pt with a Central, PICC or Fol: No Subjective Review of Systems Jessica Fisher is a 49-year-old female patient who presented to the ED with chief complaint of lower abdominal/pelvic pain. The patient states that pain started on 08/12/2024 and it was localized in the pelvic/pubic area radiating to bilateral left and right lower quadrants and back. Patient described the pain as aching/stabbing in nature, constant and intensity 10/10. Patient states that moving around lying down makes the pain worse but resting without movement makes it better. Patient also reported fever/chills that started on 08/10/2024 before the appearance of the lower pelvic pain. Patient states that last bowel movement was performed today in the a.m. Patient also reports intentional weight loss of 35 lb in the past year and a half due to Ozempic therapy. Denies other symptoms Past medical history: Prediabetes, dyslipidemia Past surgical History: 2 C- sections in 2004 and 2009 Family history: Noncontributory Past social history: Alcohol occasionally, no smoking or drugs and lives with the family. Allergies denies Home medication: Ozempic Patient seen and examined at bedside. Currently feels better than on her admission. Continues to have lower abdominal pain intensity /10. Objective vital signs Vital Sign Date Time Temp Pulse Resp B/P (MAP) Pulse Ox O2 Delivery O2 Flow Rate FiO2 08/15/24 19:36 102 18 139/88 08/15/24 13:00 98.2 96 98.2 08/15/24 02:46 Room Air* 0 21 Total Intake and Output 08/14/24 08/14/24 08/15/24 15:00 23:00 07:00 Intake Total 2250 ml 1000 ml Balance 2250 ml 1000 ml medications Current Medications Medications Dose Ordered Sig/Andres Route Start Time Stop Time Status Last Admin Dose Admin Acetaminophen 650 mg Q6HP PRN PO 08/14/24 21:45 08/14/24 22:53 650 MG Ceftriaxone Sodium 50 ml @ 100 mls/hr DAILY IV 08/15/24 10:00 08/15/24 10:02 100 MLS/HR Doxycycline Hyclate 100 ml @ 50 mls/hr BID IV 08/14/24 22:00 08/15/24 10:14 50 MLS/HR Metronidazole 100 ml @ 100 mls/hr BID IV 08/14/24 22:00 08/15/24 10:02 100 MLS/HR Ketorolac Tromethamine 15 mg Q6HP PRN IV 08/14/24 22:00 08/19/24 21:59 08/15/24 10:19 15 MG Morphine Sulfate 1 mg Q6HP PRN IV 08/15/24 11:15 08/15/24 19:36 1 MG Examination Patient lying in bed, in no acute distress General: Lucid, afebrile, mucosae are moist Cardiovascular: Normal S1 and S2. No murmurs, gallops or rubs Respiratory: Normal ventilation mechanics. Clear lung sounds on auscultation Abdomen: Soft, tenderness spontaneously and on superficial palpation of lower quadrants of abdomen, no organomegaly, reduced bowel sounds MSK/skin: Mobilizes 4 limbs. Skin is dry and warm Neurological: Oriented in 3 spheres. No motor no sensitive deficits. Pupils are isocoric and reactive laboratory and microbiology Laboratory Tests 08/15/24 09:00 Test 08/15/24 09:00 Range/Units Serum Glucose 97 74-106 mg/dL Problem List/Assessment/Plan Problem List/Assessment/Plan # Sepsis secondary to probable tubo-ovarian abscess versus UTI Currently on IV fluids and empiric IV antibiotics (ceftriaxone, doxycycline and metronidazole) Ordered pancultures (blood, urine, vaginal, sputum and STIs screening) # Acute lower abdominal pain likely due to tubo-ovarian abscess, R/O ovarian malignancy Completed abdomen and pelvis CT which shows probable ileus/enteritis/developing obstruction, multi septated 11.3 cm mass bilateral ovaries (malignancy versus abscess) Currently on IV fluids and empiric IV antibiotics (ceftriaxone, doxycycline and metronidazole) Consulted insight leader specialist: Ordered MRI with contrast (has to wait for 48 hours due to contrast) in tumor markers (pending CA 125) Optimizing pain medication # Rule out small-bowel obstruction Evidence in abdomen and pelvis CT Patient currently has bowel movements. May eventually need small-bowel series. # Rule out ovarian malignancy Consulted insight leader specialist: Ordered MRI with contrast (has to wait for [address] with contrast to avoid contrast toxicity) in tumor markers (pending CA 125) # Ruled out pancreatitis Lipase was 22 # UTI U/A suggesting UTI Currently under empiric IV antibiotic (ceftriaxone, doxycycline and metronidazole) # Prediabetes - controlled (hemoglobin A1c 5.2%) Monitor BG closely # Dyslipidemia Ordered lipid panel Goals of care discussed with the patient at bedside for >23min, FULL CODE Discussed plan with Dr. Freitas, patient and nurses: Patient requires IV antibiotics, IV fluids, and IV pain medication. insight leader on board, optimizing medical therapy and ordering complementary workup. Pending MRI with contrast due to recent use of contrast. Pending cultures. Plan discussed with: Patient, Other (Nurses) My Orders My Orders Orders - LOS LOPEZ RESIDENT Procedure Category Date Status Time RPR LAB 08/15/24 In Process 07:06 Acute Hepatitis Panel LAB 08/15/24 In Process 07:06 Blood Culture TALISHA 08/15/24 In Process 10:28 Bacterial Culture TALISHA 08/15/24 Logged Vaginal 10:28 Morphine Sulfate PHA 08/15/24 In Process Injection 11:15 Date of Service: Aug 15, 2024 Billing Provider: RESHMA FREITAS MD Common Visit Codes: [id number] INP/OBS CARE(HIGH) LOS LOPEZ RESIDENT Aug 15, 2024 20:50 RESHMA FREITAS MD Aug 16, 2024 09:50
[2024-08-15 21:00] VITALS: BP 110/60; PULSE 105; RESP 20; TEMP 98.3; O2SAT 96
[2024-08-15] MEDS ORDERED: SODIUM CHLORIDE 0.9% 1,650 ML IV ONE (21:00)
[2024-08-15] MEDS ORDERED: SODIUM CHLORIDE 0.9% 1,000 ML IV SCH (21:00)
[2024-08-15] MEDS: SODIUM CHLORIDE 0.9% 1,000 ML IV SCH (21:00)
[2024-08-16 01:00] VITALS: BP 113/68; PULSE 103; RESP 20; TEMP 97.7; O2SAT 95
--- NOTE | 2024-08-16 01:08 | DVH ---
INDICATION: ABD PAIN TECHNIQUE: Graded compression technique along with Multiple real-time sonographic images were obtain ed for evaluation of the right lower quadrant. FINDINGS: The appendix was not visualized. No free fluid or lymph nodes are seen on this exam. IMPRESSION: Nonvisualization of the appendix.
[2024-08-16 05:00] VITALS: BP 126/69; PULSE 86; RESP 19; TEMP 97.4; O2SAT 94
[2024-08-16 08:44] LABS: Basophils # (auto) 0 10 ^3/uL (0-0.2); Basophils % (auto) 0.3 % (0.0-2.0); Eosinophils # (auto) 0.2 10 ^3/uL (0-0.8); Eosinophils % (auto) 2.1 % (0.0-7.0); Hematocrit 38.9 % (36.0-46.0); Hemoglobin 12.7 g/dL (12.2-16.2); Lymphocytes # (auto) 1.9 10 ^3/uL (0.4-5.4); Lymphocytes % (auto) 16.2 % (10.0-50.0); Mean Corpuscular Hemoglobin 28.9 pg (28.0-32.0); Mean Corpuscular Hgb Conc. 32.6 g/dL (32.0-36.0); Mean Corpuscular Volume 88.4 fL (80.0-100.0); Monocytes # (auto) 0.8 10 ^3/uL (0-1.3); Monocytes % (auto) 6.7 % (0.0-12.0); Neutrophils # (auto) 8.8 10 ^3/uL (1.6-8.6); Neutrophils % (auto) 74.7 % (37.0-80.0); Nucleated Red Blood Cells % 0.1 %; Platelet Count (auto) 322 10^3/uL (140-450); Red Cell Distribution Width 14.2 % (11.8-14.3); White Blood Cell 11.8 10^3/uL (4.4-10.8)
[2024-08-16 09:00] VITALS: BP 122/62; PULSE 90; RESP 18; TEMP 98.4; O2SAT 97
[2024-08-16 09:00] LABS: Anion Gap 9 (5-15); BUN/Creatinine Ratio 14.1 (10.0-20.0); Calcium 9.9 mg/dL (8.7-10.4); Carbon Dioxide 23 mmol/L (20-31); Potassium 3.8 mmol/L (3.5-5.1); Sodium 141 mmol/L (136-145)
[2024-08-16 09:01] LABS: Bilirubin, Total 0.8 mg/dL (0.2-1.0); Total Protein 6.4 g/dL (5.7-8.2)
[2024-08-16] MEDS: ENOXAPARIN SOD 40 MG/0.4 ML SYRINGE SC SCH (09:19)
[2024-08-16] MEDS: PANTOPRAZOLE 40 MG/10 ML VIAL INJ IV SCH (09:19)
[2024-08-16 09:22] LABS: Alanine Aminotransferase 93 U/L (7-40); Alkaline Phosphatase 144 U/L (46-116); Aspartate Aminotransferase 49 U/L (13-40); Blood Urea Nitrogen 9 mg/dL (9-23); CRP High Sensitivity 14.26 mg/dL (<1.0); Chloride 109 mmol/L (98-107); Glucose 123 mg/dL (74-106)
--- NOTE | 2024-08-16 11:52 | DVHPNRES ---
Progress Note Medical Necessity Reason Pt with a Central, PICC or Fol: No Objective vital signs Vital Sign Date Time Temp Pulse Resp B/P (MAP) Pulse Ox O2 Delivery O2 Flow Rate FiO2 08/16/24 09:00 98.4 90 18 122/62 (82) 97 98.4 08/15/24 02:46 Room Air* 0 21 Total Intake and Output 08/15/24 08/15/24 08/16/24 15:00 23:00 07:00 Intake Total 250 ml 1018 ml 1000 ml Output Total 1 ml Balance 250 ml 1018 ml 999 ml medications Current Medications Medications Dose Ordered Sig/Andres Route Start Time Stop Time Status Last Admin Dose Admin Acetaminophen 650 mg Q6HP PRN PO 08/14/24 21:45 08/14/24 22:53 650 MG Ceftriaxone Sodium 50 ml @ 100 mls/hr DAILY IV 08/15/24 10:00 08/16/24 09:19 100 MLS/HR Doxycycline Hyclate 100 ml @ 50 mls/hr BID IV 08/14/24 22:00 08/16/24 09:20 50 MLS/HR Metronidazole 100 ml @ 100 mls/hr BID IV 08/14/24 22:00 08/16/24 09:19 100 MLS/HR Morphine Sulfate 1 mg Q6HP PRN IV 08/15/24 11:15 08/15/24 19:36 1 MG Sodium Chloride 1,000 ml @ 100 mls/hr Q10H IV 08/15/24 21:00 08/16/24 02:59 100 MLS/HR Enoxaparin Sodium 40 mg DAILY SC 08/16/24 10:00 08/16/24 09:19 40 MG Pantoprazole Sodium 40 mg DAILY IV 08/16/24 10:00 08/16/24 09:19 40 MG laboratory and microbiology Laboratory Tests 08/16/24 08:26 Test 08/16/24 08:26 Range/Units Serum Glucose 123 H 74-106 mg/dL Microbiology Date/Time Source Procedure Growth Status 08/14/24 16:00 Voided Urine Urine Culture - Preliminary Resulted PAULA SOLER RESIDENT Aug 16, 2024 11:52
--- NOTE | 2024-08-16 11:54 | DVHPNRES ---
Progress Note Date Seen: Aug 16, 2024 Resident Creating Document: PAULA SOLER RESIDENT Medical Necessity Reason Pt with a Central, PICC or Fol: No Subjective Review of Systems Jessica Fisher is a 49-year-old female patient who presented to the ED with chief complaint of lower abdominal/pelvic pain. The patient states that pain started on 08/12/2024 and it was localized in the pelvic/pubic area radiating to bilateral left and right lower quadrants and back. Patient described the pain as aching/stabbing in nature, constant and intensity 10/10. Patient states that moving around lying down makes the pain worse but resting without movement makes it better. Patient also reported fever/chills that started on 08/10/2024 before the appearance of the lower pelvic pain. Patient states that last bowel movement was performed today in the a.m. Patient also reports intentional weight loss of 35 lb in the past year and a half due to Ozempic therapy. Denies other symptoms Past medical history: Prediabetes, dyslipidemia Past surgical History: 2 C- sections in 2004 and 2009 Family history: Noncontributory Past social history: Alcohol occasionally, no smoking or drugs and lives with the family. Allergies denies Home medication: Ozempic Patient seen and examined at bedside. Currently feels better than on her admission. Denies active ongoing abdominal pain at present. Objective vital signs Vital Sign Date Time Temp Pulse Resp B/P (MAP) Pulse Ox O2 Delivery O2 Flow Rate FiO2 08/16/24 09:00 98.4 90 18 122/62 (82) 97 98.4 08/15/24 02:46 Room Air* 0 21 Total Intake and Output 08/15/24 08/15/24 08/16/24 15:00 23:00 07:00 Intake Total 250 ml 1018 ml 1000 ml Output Total 1 ml Balance 250 ml 1018 ml 999 ml medications Current Medications Medications Dose Ordered Sig/Andres Route Start Time Stop Time Status Last Admin Dose Admin Acetaminophen 650 mg Q6HP PRN PO 08/14/24 21:45 08/14/24 22:53 650 MG Ceftriaxone Sodium 50 ml @ 100 mls/hr DAILY IV 08/15/24 10:00 08/16/24 09:19 100 MLS/HR Doxycycline Hyclate 100 ml @ 50 mls/hr BID IV 08/14/24 22:00 08/16/24 09:20 50 MLS/HR Metronidazole 100 ml @ 100 mls/hr BID IV 08/14/24 22:00 08/16/24 09:19 100 MLS/HR Morphine Sulfate 1 mg Q6HP PRN IV 08/15/24 11:15 08/15/24 19:36 1 MG Sodium Chloride 1,000 ml @ 100 mls/hr Q10H IV 08/15/24 21:00 08/16/24 02:59 100 MLS/HR Enoxaparin Sodium 40 mg DAILY SC 08/16/24 10:00 08/16/24 09:19 40 MG Pantoprazole Sodium 40 mg DAILY IV 08/16/24 10:00 08/16/24 09:19 40 MG laboratory and microbiology Laboratory Tests 08/16/24 08:26 Test 08/16/24 08:26 Range/Units Serum Glucose 123 H 74-106 mg/dL Microbiology Date/Time Source Procedure Growth Status 08/14/24 16:00 Voided Urine Urine Culture - Preliminary Resulted Labs and/or images reviewed: Labs reviewed by me, Image(s) reviewed by me Problem List/Assessment/Plan Problem List/Assessment/Plan # Sepsis secondary to probable tubo-ovarian abscess versus UTI Currently on IV fluids and empiric IV antibiotics (ceftriaxone, doxycycline and metronidazole) Ordered pancultures (blood, urine, vaginal, sputum and STIs screening) # Acute lower abdominal pain likely due to tubo-ovarian abscess, R/O ovarian malignancy Completed abdomen and pelvis CT which shows probable ileus/enteritis/developing obstruction, multi septated 11.3 cm mass bilateral ovaries (malignancy versus abscess) Currently on IV fluids and empiric IV antibiotics (ceftriaxone, doxycycline and metronidazole) Consulted slot floorperson specialist: Ordered MRI with contrast (has to wait for 48 hours due to contrast) in tumor markers (pending CA 125) Optimizing pain medication; Alma 5 q.4 hours as needed for moderate pain # Rule out small-bowel obstruction Evidence in abdomen and pelvis CT Patient currently has bowel movements. Last bowel movement this a.m. on 08/16/2024 May eventually need small-bowel series. # Rule out ovarian malignancy Consulted slot floorperson specialist: Ordered MRI with contrast (has to wait for [address] with contrast to avoid contrast toxicity) in tumor markers (pending CA 125) CT abdomen pelvis with IV contrast: Redemonstration of complex multi septated 11.3 cm pelvic mass abutting the bilateral ovaries with moderate surrounding fat stranding concerning for ovarian malignancy. Differential diagnosis includes tubo-ovarian abscess. Recommend clinical and biochemical correlation. Further evaluation with pelvic ultrasound, female pelvis MRI without and with IV contrast could be completed if clinically warranted. # Ruled out pancreatitis Lipase was 22 # UTI U/A suggesting UTI Currently under empiric IV antibiotic (ceftriaxone, doxycycline and metronidazole) # Prediabetes - controlled (hemoglobin A1c 5.2%) Monitor BG closely # Dyslipidemia Ordered lipid panel Goals of care discussed with the patient at bedside for >23min, FULL CODE Discussed plan with Dr. Freitas, patient and nurses: Patient requires IV antibiotics, IV fluids, and IV pain medication. slot floorperson on board, optimizing medical therapy and ordering complementary workup. Pending MRI with contrast due to recent use of contrast. Pending cultures. Plan discussed with: Patient, Other (RN) Date of Service: Aug 16, 2024 Billing Provider: RESHMA FREITAS MD Common Visit Codes: [id number] INP/OBS CARE(HIGH) PAULA SOLER RESIDENT Aug 16, 2024 11:54 RESHMA FREITAS MD Aug 16, 2024 22:09
--- NOTE | 2024-08-16 12:04 | DVH ---
CHEST RADIOGRAPH Indication: Pain Technique: Single frontal view of the chest was obtained COMPARISON: None FINDINGS: Lines and Tubes: None Lungs: Clear Pleura: No effusion. No pneumothorax. Cardiomediastinal contours: Unremarkable Bones: Unremarkable IMPRESSION: No acute disease.
[2024-08-16 13:00] VITALS: BP 130/75; PULSE 91; RESP 16; TEMP 99.8; O2SAT 98
--- NOTE | 2024-08-16 15:26 | DVHINCON2 ---
DATE OF CONSULTATION: 08/16/2024 REASON FOR CONSULTATION: Abdominal pain. HISTORY OF PRESENT ILLNESS: The patient is a 49-year-old 9, para 5-0-4-5, admitted for abdominal pain, fever and chills. The patient states on 08/10/2024, she started having lower abdominal pain suprapubic extending bilateral to both lower quadrant. Her last Pap smear was many years ago. She has been postmenopausal since March. Denies having any abnormal uterine vaginal bleeding, pelvic discomfort prior to this episode. The patient is not sexually active. Her last intercourse was 6 years ago. The patient's CT of abdomen revealed 11.3 x 7.8 multiseptated mass in suprapubic region, however, her pelvic ultrasound was completely benign. Endometrial thickness is consistent with postmenopausal at 4.5 mm. Neither ovaries were seen, which appears to be consistent with atrophic ovaries. Uterus was approximately 8 weeks' size. The patient has no abnormal finding with this ultrasound. CT is suspicious for malignancy. The patient was started on antibiotics, to which she is responding well. PAST MEDICAL HISTORY: Hyperlipidemia. PAST SURGICAL HISTORY: Laparoscopy, 2 section, 3 D and Cs. SOCIAL HISTORY: None. OBSTETRIC AND GYNECOLOGIC HISTORY: Three D and Cs, 2 sections, 3 vaginal deliveries. REVIEW OF SYSTEMS: Consistent with HPI. PHYSICAL EXAMINATION: VITAL SIGNS: At the time of my examination, stable, afebrile. GENERAL APPEARANCE: The patient does not appear in any discomfort. HEENT: Within normal limits. CARDIOVASCULAR: Regular rate and rhythm. LUNGS: Clear to auscultation. BREASTS: Symmetrical. No masses. ABDOMEN: Obese, pain, suprapubic tenderness and voluntary guarding noted. Abdomen is not distended. PELVIC: Reveals vagina to be warm. No cervical motion tenderness noted. Uterus 8 weeks' size. Adnexa nontender. EXTREMITIES: No clubbing, cyanosis or edema. IMPRESSION: * Acute abdominal pain. * Multiseptated intra-abdominal mass suspicious for malignancy versus abscess. * Postmenopausal status. RECOMMENDATION: MRI of abdomen and pelvis, CA-125. I will have Dr. Hess evaluate the patient on Saturday for possibility of any ruptured appendix versus other etiology of intra-abdominal abscess. We will follow. Discontinue Toradol in the event of surgery. The patient is also on Ozempic, last given a few days ago. Thank you very much for this consultation. DO ANAYELI Garcia TID: [id number] RECEIPT: [id number]
[2024-08-16 17:00] VITALS: BP 121/72; PULSE 95; RESP 16; TEMP 100; O2SAT 98
--- NOTE | 2024-08-16 17:12 | DVH ---
EXAM: MRI PELVIS WO W CONTRAST MRI HISTORY: PELVIC PAIN COMPARISON: US PELVIC on DOS: 08/15/24 TECHNIQUE: Multiplanar, multisequence MRI of the pelvis was performed. FINDINGS: A large, 11.3 x 8.4 x 7.5 cm complex lobular fluid collection with partial septations, mural thickeni ng posteriorly and extensive surrounding inflammation noted in the upper pelvis proximal to uterine f undus abutting the bilateral ovaries and left paramedian ventral pelvic wall with evidence of retract ion of the overlying pelvic wall. The uterus is anteverted measuring 8.5 cm in length. Myometrium is heterogeneous with evidence of adenomyosis. No uterine leiomyomas noted. Several subcentimeter nabo thian cysts are seen in the cervix. The endometrium is normal thickness measuring 2 cm. Bilateral ov robert are poorly evaluated due to the adjacent cystic mass. Small amount of free fluid noted in cul- de-sac. No pelvic or inguinal lymphadenopathy noted. IMPRESSION: 1. Large, 11.3 cm complex fluid collection with extensive surrounding inflammation that may represent tubo-ovarian abscess or cystic ovarian neoplasm. Recommend excisional biopsy. No pelvic sidewall lym phadenopathy.
[2024-08-16 21:00] VITALS: BP 121/67; PULSE 97; RESP 18; TEMP 98.1; O2SAT 94
[2024-08-17 01:00] VITALS: BP 119/65; PULSE 90; RESP 18; TEMP 98.2; O2SAT 95
[2024-08-17] MEDS: HYDROcodone-ACET 5/325MG TAB PO PRN (01:06)
[2024-08-17 05:00] VITALS: BP 105/62; PULSE 90; RESP 18; TEMP 98.2; O2SAT 98
[2024-08-17 06:44] LABS: Basophils # (auto) 0.1 10 ^3/uL (0-0.2); Basophils % (auto) 0.7 % (0.0-2.0); Eosinophils # (auto) 0.2 10 ^3/uL (0-0.8); Eosinophils % (auto) 2.2 % (0.0-7.0); Hematocrit 37.5 % (36.0-46.0); Hemoglobin 12.4 g/dL (12.2-16.2); Lymphocytes # (auto) 2.4 10 ^3/uL (0.4-5.4); Lymphocytes % (auto) 24.6 % (10.0-50.0); Mean Corpuscular Hemoglobin 29.4 pg (28.0-32.0); Mean Corpuscular Hgb Conc. 33.1 g/dL (32.0-36.0); Mean Corpuscular Volume 88.7 fL (80.0-100.0); Monocytes # (auto) 0.7 10 ^3/uL (0-1.3); Monocytes % (auto) 7.4 % (0.0-12.0); Neutrophils # (auto) 6.3 10 ^3/uL (1.6-8.6); Neutrophils % (auto) 65.1 % (37.0-80.0); Nucleated Red Blood Cells % 0.1 %; Platelet Count (auto) 347 10^3/uL (140-450); Red Blood Cells 4.22 10^6/uL (4.0-5.20); Red Cell Distribution Width 14.5 % (11.8-14.3); White Blood Cell 9.7 10^3/uL (4.4-10.8)
[2024-08-17 07:13] LABS: Anion Gap 9 (5-15)
[2024-08-17 07:18] LABS: Glucose 88 mg/dL (74-106)
[2024-08-17 07:22] LABS: Blood Urea Nitrogen 7 mg/dL (9-23); Carbon Dioxide 25 mmol/L (20-31); Chloride 107 mmol/L (98-107); Sodium 141 mmol/L (136-145)
[2024-08-17 08:00] LABS: Albumin 3.9 g/dL (3.2-4.8)
[2024-08-17 08:01] LABS: Total Protein 6.2 g/dL (5.7-8.2)
[2024-08-17 08:15] LABS: Bilirubin, Direct 0.2 mg/dL (<0.3)
[2024-08-17 08:17] LABS: Bilirubin, Total 0.4 mg/dL (0.2-1.0)
--- NOTE | 2024-08-17 08:22 | DVHPN2 ---
Subjective Progress Notes Subjective 49y admitted w/ acute abdominal pain CT/MRI show an inflammatory cystic pelvic abscess x 11 cm (TOA vs Ovarian neoplasm) Patient is improving on IV antibiotics w/ down trending WBC count. However, remain very tender in LLQ and suprapubic region. Denies any chills, endorses + Fever. History does not reveal any risk factors for PID/TOA. Ovarian tumor markers CEA, CA 125 are pending. Objective PHYSICAL EXAM Physical Exam: Alert, obese, NAD Abd: Soft, no palp masses, LLQ pain to deep palpation, no rebound Ext soft, NT Pelvic Deferred Vital Signs and I&O Vital Signs Date Time Temp Pulse Resp B/P (MAP) Pulse Ox O2 Delivery O2 Flow Rate FiO2 08/17/24 05:00 98.2 90 18 105/62 (76) 98 98.2 Intake and Output 08/17/24 07:00 Intake Total 650 ml Balance 650 ml Intake Oral 200 ml IV Total 450 ml # Voids 9 # Bowel Movements 2 Lab results Laboratory Tests Test 08/14/24 16:00 08/14/24 16:51 08/15/24 00:28 08/15/24 09:00 Range/Units Urine Color Dark-orange Yellow Urine Clarity Turbid H Clear Urine pH 6.0 5.0-9.0 Urine Specific [place] 1.029 1.001-1.035 Urine Protein 1+ H Negative Urine Ketones Trace Negative Urine Blood 1+ H Negative /uL Urine Nitrite Negative Negative Urine Bilirubin 1+ H Negative Urine Urobilinogen 4 H Negative mg/dL Urine Leukocyte Esterase 3+ Negative /uL Urine RBC 7 0 - 4 /hpf Urine Microscopic WBC 51 H 0-5 /HPF Urine Squamous Epithelial Cells Mod <5 /hpf Urine Bacteria Few H None Seen /hpf Urine Hyaline Casts Few 0 - 2 /lpf Urine Mucus Few None Seen Urine Glucose Trace Normal mg/dL Urine Test Negative Negative White Blood Count 17.8 H 11.4 #H 4.4-10.8 10^3/uL Red Blood Count 5.52 H 4.35 4.0-5.20 10^6/uL Hemoglobin 15.9 12.7 # 12.2-16.2 g/dL Hematocrit 47.7 H 38.2 # 36.0-46.0 % Mean Corpuscular Volume 86.5 87.8 80.0-100.0 fL Mean Corpuscular Hemoglobin 28.9 29.3 28.0-32.0 pg Mean Corpuscular Hemoglobin Concent 33.4 33.3 32.0-36.0 g/dL Red Cell Distribution Width 14.1 14.4 H 11.8-14.3 % Platelet Count 411 326 140-450 10^3/uL Mean Platelet Volume 8.6 8.9 6.9-10.8 fL Neutrophils (%) (Auto) 72.6 72.4 37.0-80.0 % Lymphocytes (%) (Auto) 18.1 16.1 10.0-50.0 % Monocytes (%) (Auto) 8.2 9.8 0.0-12.0 % Eosinophils (%) (Auto) 0.5 1.2 0.0-7.0 % Basophils (%) (Auto) 0.6 0.5 0.0-2.0 % Neutrophils # (Auto) 12.9 H 8.2 1.6-8.6 10 ^3/uL Lymphocytes # (Auto) 3.2 1.8 0.4-5.4 10 ^3/uL Monocytes # (Auto) 1.5 H 1.1 0-1.3 10 ^3/uL Eosinophils # (Auto) 0.1 0.1 0-0.8 10 ^3/uL Basophils # (Auto) 0.1 0.1 0-0.2 10 ^3/uL Nucleated Red Blood Cells 0.0 0.0 % Sodium Level 138 140 136-145 mmol/L Potassium Level 4.5 4.0 3.5-5.1 mmol/L Chloride Level 101 109 H 98-107 mmol/L Carbon Dioxide Level 29 23 20-31 mmol/L Anion Gap 8 8 5-15 Blood Urea Nitrogen 11 16 9-23 mg/dL Creatinine 0.99 0.84 0.550-1.02 mg/dL Glomerular Filtration Rate Calc 69 85 >90 mL/min BUN/Creatinine Ratio 11.1 19.0 10.0-20.0 Serum Glucose 111 H 97 74-106 mg/dL Hemoglobin A1c 5.2 <5.7 % A1C Lactic Acid Level 1.1 0.4-2.0 mmol/L Calcium Level 10.7 H 9.5 8.7-10.4 mg/dL Total Bilirubin 2.8 H 1.7 H 0.2-1.0 mg/dL Aspartate Amino Transferase (AST) 38 141 H 13-40 U/L Alanine Aminotransferase (ALT) 44 H 106 H 7-40 U/L Alkaline Phosphatase 130 H 137 H 46-116 U/L Troponin I High Sensitivity 3 L < 3 L </=34 ng/L Total Protein 7.2 6.1 5.7-8.2 g/dL Albumin 4.6 3.8 3.2-4.8 g/dL Triglycerides Level 111 < 150 mg/dL Cholesterol Level 168 < 200 mg/dL LDL Cholesterol 105 H < 100 mg/dL HDL Cholesterol 48 40-59 mg/dL Lipase 22 12-53 U/L Beta HCG, Quantitative 0.7 L 1.5-4.2 mIU/mL Prothrombin Time 11.2 9.3-11.8 sec Prothrombin Time INR 1.06 0.9-1.15 Activated Partial Thromboplast Time 31.1 24.5-34.5 SEC Phosphorus Level 3.3 2.4-5.1 mg/dL Magnesium Level 1.8 1.6-2.6 mg/dL CA 125 Antigen Pending Rapid Plasma Reagin Pending Hepatitis A IgM Antibody Pending Hepatitis B Surface Antigen Pending Hepatitis B Core IgM Antibody Pending Hepatitis C Antibody Pending HIV (1&2) Antibody Negative Negative Test 08/16/24 08:26 08/17/24 06:09 Range/Units White Blood Count 11.8 H 9.7 4.4-10.8 10^3/uL Red Blood Count 4.40 4.22 4.0-5.20 10^6/uL Hemoglobin 12.7 12.4 12.2-16.2 g/dL Hematocrit 38.9 37.5 36.0-46.0 % Mean Corpuscular Volume 88.4 88.7 80.0-100.0 fL Mean Corpuscular Hemoglobin 28.9 29.4 28.0-32.0 pg Mean Corpuscular Hemoglobin Concent 32.6 33.1 32.0-36.0 g/dL Red Cell Distribution Width 14.2 14.5 H 11.8-14.3 % Platelet Count 322 347 140-450 10^3/uL Mean Platelet Volume 8.2 8.2 6.9-10.8 fL Neutrophils (%) (Auto) 74.7 65.1 37.0-80.0 % Lymphocytes (%) (Auto) 16.2 24.6 10.0-50.0 % Monocytes (%) (Auto) 6.7 7.4 0.0-12.0 % Eosinophils (%) (Auto) 2.1 2.2 0.0-7.0 % Basophils (%) (Auto) 0.3 0.7 0.0-2.0 % Neutrophils # (Auto) 8.8 H 6.3 1.6-8.6 10 ^3/uL Lymphocytes # (Auto) 1.9 2.4 0.4-5.4 10 ^3/uL Monocytes # (Auto) 0.8 0.7 0-1.3 10 ^3/uL Eosinophils # (Auto) 0.2 0.2 0-0.8 10 ^3/uL Basophils # (Auto) 0 0.1 0-0.2 10 ^3/uL Nucleated Red Blood Cells 0.1 0.1 % Sodium Level 141 141 136-145 mmol/L Potassium Level 3.8 4.0 3.5-5.1 mmol/L Chloride Level 109 H 107 98-107 mmol/L Carbon Dioxide Level 23 25 20-31 mmol/L Anion Gap 9 9 5-15 Blood Urea Nitrogen 9 7 L 9-23 mg/dL Creatinine 0.64 0.50 L 0.550-1.02 mg/dL Glomerular Filtration Rate Calc 108 114 >90 mL/min BUN/Creatinine Ratio 14.1 14.0 10.0-20.0 Serum Glucose 123 H 88 74-106 mg/dL Calcium Level 9.9 10.0 8.7-10.4 mg/dL Total Bilirubin 0.8 Pending Aspartate Amino Transferase (AST) 49 H 28 13-40 U/L Alanine Aminotransferase (ALT) 93 H 61 H 7-40 U/L Alkaline Phosphatase 144 H 147 H 46-116 U/L C-Reactive Protein High Sensitivity 14.26 H <1.0 mg/dL Total Protein 6.4 6.2 5.7-8.2 g/dL Albumin 4.0 3.9 3.2-4.8 g/dL Direct Bilirubin Pending Carcinoembryonic Antigen Pending Assessment and Plan ASSESSMENT AND PLAN Assessment and Plan Acute abdominal pain Pelvic mass, TOA vs Ovarian neoplasm Plan Recommend Gen Surgery consult IR consult for poss IR drainage if abscess Clinically suspicious for abscess/TOA, malignancy less likely but also included in DDX Await CEA, CA 125 markers If consultants believe malignancy is likely, will need higher level of care where ACCOUNTING SYSTEMS ANALYST ONC is available to perform staging surgery. Will follow My orders: Orders - MONICA VILLAR DO * Thread Puller Consultation (08/17/24 07:21) Chlamydia/Gc Amplification (08/17/24 07:31) Npo Except For Medications (08/17/24 07:31) Carcinoembryonic Antigen (08/17/24 07:31) * Radiologist Consult (08/17/24 07:31) Plan discussed with: Patient, Other (Dr. Hess, Dr Paxton Louise) Visit Coding OBGYN Date of Service: Aug 17, 2024 Billing Provider: MONICA VILLAR DO PATIENT RESOURCE COORDINATOR Common Visit Codes: CONSULTATION ONLY PATIENT RESOURCE COORDINATOR Consultation Codes: [id number]/U INPATIENT CONSULT (HIGH) MONICA VILLAR DO Aug 17, 2024 08:22
[2024-08-17 08:42] LABS: Hepatitis B Surface Antigen Negative (Negative)
[2024-08-17 08:58] LABS: Hepatitis A Ab IgM Negative; Hepatitis B Core IgM Negative (Negative); Hepatitis C Antibody Negative (Negative)
[2024-08-17 09:00] VITALS: BP 123/82; PULSE 78; RESP 18; TEMP 98.6; O2SAT 97
[2024-08-17 13:00] VITALS: BP 113/63; PULSE 81; RESP 16; TEMP 98.8; O2SAT 98
--- NOTE | 2024-08-17 16:17 | DVHPNRES ---
Progress Note Date Seen: Aug 17, 2024 Resident Creating Document: [place] LOPEZ RESIDENT Medical Necessity Reason Pt with a Central, PICC or Fol: No Subjective Review of Systems Jessica Fisher is a 49-year-old female patient who presented to the ED with chief complaint of lower abdominal/pelvic pain. The patient states that pain started on 08/12/2024 and it was localized in the pelvic/pubic area radiating to bilateral left and right lower quadrants and back. Patient described the pain as aching/stabbing in nature, constant and intensity 10/10. Patient states that moving around lying down makes the pain worse but resting without movement makes it better. Patient also reported fever/chills that started on 08/10/2024 before the appearance of the lower pelvic pain. Patient states that last bowel movement was performed today in the a.m. Patient also reports intentional weight loss of 35 lb in the past year and a half due to Ozempic therapy. Denies other symptoms Past medical history: Prediabetes, dyslipidemia Past surgical History: 2 C- sections in 2004 and 2009 Family history: Noncontributory Past social history: Alcohol occasionally, no smoking or drugs and lives with the family. Allergies denies Home medication: Ozempic Patient seen and examined at bedside. Currently feels better than on her admission. Continues to have lower abdominal pain intensity 4/10. Planning on IR drainage for 08/18/2024 Objective vital signs Vital Sign Date Time Temp Pulse Resp B/P (MAP) Pulse Ox O2 Delivery O2 Flow Rate FiO2 08/17/24 13:00 98.8 81 16 113/63 (80) 98 98.8 Total Intake and Output 08/16/24 08/16/24 08/17/24 15:00 23:00 07:00 Intake Total 250 ml 200 ml 200 ml Balance 250 ml 200 ml 200 ml medications Current Medications Medications Dose Ordered Sig/Andres Route Start Time Stop Time Status Last Admin Dose Admin Acetaminophen 650 mg Q6HP PRN PO 08/14/24 21:45 08/14/24 22:53 650 MG Ceftriaxone Sodium 50 ml @ 100 mls/hr DAILY IV 08/15/24 10:00 08/17/24 08:10 100 MLS/HR Doxycycline Hyclate 100 ml @ 50 mls/hr BID IV 08/14/24 22:00 08/17/24 08:10 50 MLS/HR Metronidazole 100 ml @ 100 mls/hr BID IV 08/14/24 22:00 08/17/24 15:28 100 MLS/HR Morphine Sulfate 1 mg Q6HP PRN IV 08/15/24 11:15 08/16/24 20:07 1 MG Sodium Chloride 1,000 ml @ 100 mls/hr Q10H IV 08/15/24 21:00 08/16/24 02:59 100 MLS/HR Enoxaparin Sodium 40 mg DAILY SC 08/16/24 10:00 08/16/24 09:19 40 MG Pantoprazole Sodium 40 mg DAILY IV 08/16/24 10:00 08/17/24 08:10 40 MG Acetaminophen/ Hydrocodone Bitart 1 tab Q4HPRN PRN PO 08/16/24 14:30 08/17/24 08:27 1 TAB Examination Patient lying in bed, in no acute distress General: Lucid, afebrile, mucosae are moist Cardiovascular: Normal S1 and S2. No murmurs, gallops or rubs Respiratory: Normal ventilation mechanics. Clear lung sounds on auscultation Abdomen: Soft, tenderness spontaneously and on superficial palpation of lower quadrants of abdomen, no organomegaly, reduced bowel sounds MSK/skin: Mobilizes 4 limbs. Skin is dry and warm Neurological: Oriented in 3 spheres. No motor no sensitive deficits. Pupils are isocoric and reactive laboratory and microbiology Laboratory Tests 08/17/24 06:09 Test 08/17/24 06:09 Range/Units Serum Glucose 88 74-106 mg/dL Microbiology Date/Time Source Procedure Growth Status 08/16/24 07:00 Vaginal Vaginal Culture - Preliminary Resulted 08/15/24 13:01 Blood Blood Culture - Preliminary NO GROWTH AFTER 48 HOURS OF INCUBATION. Resulted 08/14/24 16:00 Voided Urine Urine Culture - Final Complete Problem List/Assessment/Plan Problem List/Assessment/Plan # Sepsis secondary to probable tubo-ovarian abscess versus UTI Currently on IV fluids and empiric IV antibiotics (ceftriaxone, doxycycline and metronidazole) Ordered pancultures (blood, urine, vaginal, sputum and STIs screening) # Acute lower abdominal pain likely due to tubo-ovarian abscess, R/O ovarian malignancy Completed abdomen and pelvis CT which shows probable ileus/enteritis/developing obstruction, multi septated 11.3 cm mass bilateral ovaries (malignancy versus abscess) Currently on IV fluids and empiric IV antibiotics (ceftriaxone, doxycycline and metronidazole) Consulted family consumer science teacher specialist: Ordered MRI with contrast which showed left 11.3 complex fluid collection (probable tubo-ovarian abscess versus malignancy, recommends biopsy, planning to get drainage placed by IR on 08/18/2024. Tumor markers (pending CA 125) Pending STD panel, preliminary negative. Optimizing pain medication # Rule out small-bowel obstruction Evidence in abdomen and pelvis CT Patient currently has bowel movements. May eventually need small-bowel series. # Rule out ovarian malignancy Consulted family consumer science teacher specialist: Ordered MRI with contrast which showed left 11.3 complex fluid collection (probable tubo-ovarian abscess versus malignancy, recommends biopsy, planning to get drainage placed by IR on 08/18/2024. Tumor markers (pending CA 125) # Ruled out pancreatitis Lipase was 22 # UTI U/A suggesting UTI Currently under empiric IV antibiotic (ceftriaxone, doxycycline and metronidazole) # Prediabetes - controlled (hemoglobin A1c 5.2%) Monitor BG closely # Dyslipidemia Ordered lipid panel Goals of care discussed with the patient at bedside for >23min, FULL CODE Discussed plan with Dr. Nugent, patient and nurses: Patient requires IV antibiotics, IV fluids, and IV pain medication. family consumer science teacher on board, optimizing medical therapy and ordering complementary workup. Planning on completing IR procedure on 08/18/2024 to obtain sample in lead drain. Pending cultures. Plan discussed with: Patient, Daughter, Other (Nurses) Date of Service: Aug 17, 2024 Billing Provider: PAULINE NUGENT MD Common Visit Codes: [id number] INP/OBS CARE(HIGH) [place]OPE[place] RESIDENT Aug 17, 2024 16:17 PAULINE NUGENT MD Aug 18, 2024 16:15
[2024-08-17 17:00] VITALS: BP 112/69; PULSE 85; RESP 16; TEMP 98.8; O2SAT 98
[2024-08-17] MEDS: ONDANSETRON HCL 4 MG/2 ML VIAL IV PRN (18:37)
[2024-08-17 21:00] VITALS: BP 102/55; PULSE 84; RESP 18; TEMP 99.4; O2SAT 97
[2024-08-18 05:00] VITALS: BP 108/71; PULSE 86; RESP 18; TEMP 98.4; O2SAT 97
[2024-08-18 05:08] LABS: RPR Non Reactive (Non Reactive)
[2024-08-18 06:40] LABS: Basophils # (auto) 0.1 10 ^3/uL (0-0.2); Basophils % (auto) 0.6 % (0.0-2.0); Eosinophils # (auto) 0.2 10 ^3/uL (0-0.8); Eosinophils % (auto) 2.2 % (0.0-7.0); Hematocrit 37.3 % (36.0-46.0); Hemoglobin 12.4 g/dL (12.2-16.2); Lymphocytes # (auto) 2.2 10 ^3/uL (0.4-5.4); Lymphocytes % (auto) 20.8 % (10.0-50.0); Mean Corpuscular Hemoglobin 29.4 pg (28.0-32.0); Mean Corpuscular Hgb Conc. 33.4 g/dL (32.0-36.0); Mean Corpuscular Volume 88.1 fL (80.0-100.0); Monocytes # (auto) 0.9 10 ^3/uL (0-1.3); Monocytes % (auto) 8.3 % (0.0-12.0); Neutrophils # (auto) 7.4 10 ^3/uL (1.6-8.6); Neutrophils % (auto) 68.1 % (37.0-80.0); Platelet Count (auto) 414 10^3/uL (140-450); Red Blood Cells 4.23 10^6/uL (4.0-5.20); Red Cell Distribution Width 14.2 % (11.8-14.3); White Blood Cell 10.8 10^3/uL (4.4-10.8)
[2024-08-18 06:54] LABS: Calcium 10.3 mg/dL (8.7-10.4); Chloride 105 mmol/L (98-107); Potassium 4.1 mmol/L (3.5-5.1); Sodium 140 mmol/L (136-145)
--- NOTE | 2024-08-18 06:54 | DVHPN2 ---
Subjective Progress Notes Subjective No changes over night Pain is moderate No fever/Chills. Objective PHYSICAL EXAM Physical Exam: Abd: tender in LLQ and suprapubic region Alert, NAD Ext soft, NT Vital Signs and I&O Vital Signs Date Time Temp Pulse Resp B/P (MAP) Pulse Ox O2 Delivery O2 Flow Rate FiO2 08/18/24 05:00 98.4 86 18 108/71 (83) 97 98.4 Intake and Output 08/18/24 07:00 Intake Total 1120 ml Output Total 520 ml Balance 600 ml Intake Oral 870 ml IV Total 250 ml Output Urine Total 520 ml # Voids 2 # Bowel Movements 1 Lab results Laboratory Tests Test 08/14/24 16:00 08/14/24 16:51 08/15/24 00:28 08/15/24 09:00 Range/Units Urine Color Dark-orange Yellow Urine Clarity Turbid H Clear Urine pH 6.0 5.0-9.0 Urine Specific [place] 1.029 1.001-1.035 Urine Protein 1+ H Negative Urine Ketones Trace Negative Urine Blood 1+ H Negative /uL Urine Nitrite Negative Negative Urine Bilirubin 1+ H Negative Urine Urobilinogen 4 H Negative mg/dL Urine Leukocyte Esterase 3+ Negative /uL Urine RBC 7 0 - 4 /hpf Urine Microscopic WBC 51 H 0-5 /HPF Urine Squamous Epithelial Cells Mod <5 /hpf Urine Bacteria Few H None Seen /hpf Urine Hyaline Casts Few 0 - 2 /lpf Urine Mucus Few None Seen Urine Glucose Trace Normal mg/dL Urine Test Negative Negative White Blood Count 17.8 H 11.4 #H 4.4-10.8 10^3/uL Red Blood Count 5.52 H 4.35 4.0-5.20 10^6/uL Hemoglobin 15.9 12.7 # 12.2-16.2 g/dL Hematocrit 47.7 H 38.2 # 36.0-46.0 % Mean Corpuscular Volume 86.5 87.8 80.0-100.0 fL Mean Corpuscular Hemoglobin 28.9 29.3 28.0-32.0 pg Mean Corpuscular Hemoglobin Concent 33.4 33.3 32.0-36.0 g/dL Red Cell Distribution Width 14.1 14.4 H 11.8-14.3 % Platelet Count 411 326 140-450 10^3/uL Mean Platelet Volume 8.6 8.9 6.9-10.8 fL Neutrophils (%) (Auto) 72.6 72.4 37.0-80.0 % Lymphocytes (%) (Auto) 18.1 16.1 10.0-50.0 % Monocytes (%) (Auto) 8.2 9.8 0.0-12.0 % Eosinophils (%) (Auto) 0.5 1.2 0.0-7.0 % Basophils (%) (Auto) 0.6 0.5 0.0-2.0 % Neutrophils # (Auto) 12.9 H 8.2 1.6-8.6 10 ^3/uL Lymphocytes # (Auto) 3.2 1.8 0.4-5.4 10 ^3/uL Monocytes # (Auto) 1.5 H 1.1 0-1.3 10 ^3/uL Eosinophils # (Auto) 0.1 0.1 0-0.8 10 ^3/uL Basophils # (Auto) 0.1 0.1 0-0.2 10 ^3/uL Nucleated Red Blood Cells 0.0 0.0 % Sodium Level 138 140 136-145 mmol/L Potassium Level 4.5 4.0 3.5-5.1 mmol/L Chloride Level 101 109 H 98-107 mmol/L Carbon Dioxide Level 29 23 20-31 mmol/L Anion Gap 8 8 5-15 Blood Urea Nitrogen 11 16 9-23 mg/dL Creatinine 0.99 0.84 0.550-1.02 mg/dL Glomerular Filtration Rate Calc 69 85 >90 mL/min BUN/Creatinine Ratio 11.1 19.0 10.0-20.0 Serum Glucose 111 H 97 74-106 mg/dL Hemoglobin A1c 5.2 <5.7 % A1C Lactic Acid Level 1.1 0.4-2.0 mmol/L Calcium Level 10.7 H 9.5 8.7-10.4 mg/dL Total Bilirubin 2.8 H 1.7 H 0.2-1.0 mg/dL Aspartate Amino Transferase (AST) 38 141 H 13-40 U/L Alanine Aminotransferase (ALT) 44 H 106 H 7-40 U/L Alkaline Phosphatase 130 H 137 H 46-116 U/L Troponin I High Sensitivity 3 L < 3 L </=34 ng/L Total Protein 7.2 6.1 5.7-8.2 g/dL Albumin 4.6 3.8 3.2-4.8 g/dL Triglycerides Level 111 < 150 mg/dL Cholesterol Level 168 < 200 mg/dL LDL Cholesterol 105 H < 100 mg/dL HDL Cholesterol 48 40-59 mg/dL Lipase 22 12-53 U/L Beta HCG, Quantitative 0.7 L 1.5-4.2 mIU/mL Prothrombin Time 11.2 9.3-11.8 sec Prothrombin Time INR 1.06 0.9-1.15 Activated Partial Thromboplast Time 31.1 24.5-34.5 SEC Phosphorus Level 3.3 2.4-5.1 mg/dL Magnesium Level 1.8 1.6-2.6 mg/dL CA 125 Antigen Pending Rapid Plasma Reagin Non reactive Non Reactive Hepatitis A IgM Antibody Negative Hepatitis B Surface Antigen Negative Negative Hepatitis B Core IgM Antibody Negative Negative Hepatitis C Antibody Negative Negative HIV (1&2) Antibody Negative Negative Test 08/16/24 08:26 08/17/24 06:09 08/18/24 06:04 Range/Units White Blood Count 11.8 H 9.7 10.8 4.4-10.8 10^3/uL Red Blood Count 4.40 4.22 4.23 4.0-5.20 10^6/uL Hemoglobin 12.7 12.4 12.4 12.2-16.2 g/dL Hematocrit 38.9 37.5 37.3 36.0-46.0 % Mean Corpuscular Volume 88.4 88.7 88.1 80.0-100.0 fL Mean Corpuscular Hemoglobin 28.9 29.4 29.4 28.0-32.0 pg Mean Corpuscular Hemoglobin Concent 32.6 33.1 33.4 32.0-36.0 g/dL Red Cell Distribution Width 14.2 14.5 H 14.2 11.8-14.3 % Platelet Count 322 347 414 140-450 10^3/uL Mean Platelet Volume 8.2 8.2 8.0 6.9-10.8 fL Neutrophils (%) (Auto) 74.7 65.1 68.1 37.0-80.0 % Lymphocytes (%) (Auto) 16.2 24.6 20.8 10.0-50.0 % Monocytes (%) (Auto) 6.7 7.4 8.3 0.0-12.0 % Eosinophils (%) (Auto) 2.1 2.2 2.2 0.0-7.0 % Basophils (%) (Auto) 0.3 0.7 0.6 0.0-2.0 % Neutrophils # (Auto) 8.8 H 6.3 7.4 1.6-8.6 10 ^3/uL Lymphocytes # (Auto) 1.9 2.4 2.2 0.4-5.4 10 ^3/uL Monocytes # (Auto) 0.8 0.7 0.9 0-1.3 10 ^3/uL Eosinophils # (Auto) 0.2 0.2 0.2 0-0.8 10 ^3/uL Basophils # (Auto) 0 0.1 0.1 0-0.2 10 ^3/uL Nucleated Red Blood Cells 0.1 0.1 0.0 % Sodium Level 141 141 Pending Potassium Level 3.8 4.0 Pending Chloride Level 109 H 107 Pending Carbon Dioxide Level 23 25 Pending Anion Gap 9 9 Pending Blood Urea Nitrogen 9 7 L Pending Creatinine 0.64 0.50 L Pending Glomerular Filtration Rate Calc 108 114 Pending BUN/Creatinine Ratio 14.1 14.0 Pending Serum Glucose 123 H 88 Pending Calcium Level 9.9 10.0 Pending Total Bilirubin 0.8 0.4 0.2-1.0 mg/dL Aspartate Amino Transferase (AST) 49 H 28 13-40 U/L Alanine Aminotransferase (ALT) 93 H 61 H 7-40 U/L Alkaline Phosphatase 144 H 147 H 46-116 U/L C-Reactive Protein High Sensitivity 14.26 H Pending Total Protein 6.4 6.2 5.7-8.2 g/dL Albumin 4.0 3.9 3.2-4.8 g/dL Direct Bilirubin 0.2 <0.3 mg/dL Carcinoembryonic Antigen < 0.50 <=5.0 ng/mL Assessment and Plan ASSESSMENT AND PLAN Assessment and Plan 1. Acute abdominal pain. 2. Pelvic mass, favor TOA/Abscess vs. neoplasm (less likely) 3. Leukocytosis, resolved Plan: For IR Drainage today. Continue IV antibiotics Pending Gen Surgery consult My orders: Orders - MONICA VILLAR DO Chlamydia/Gc Amplification (08/17/24 07:31) Npo Except For Medications (08/17/24 07:31) * Radiologist Consult (08/17/24 07:31) * Surgical Consult (08/17/24 ) * Energy Conservation Representative Consultation (08/17/24 11:28) Plan discussed with: Patient Visit Coding OBGYN Date of Service: Aug 18, 2024 Billing Provider: MONICA VILLAR DO ORTHOTICS PROSTHETICS ASSISTANT Common Visit Codes: CONSULTATION ONLY ORTHOTICS PROSTHETICS ASSISTANT Consultation Codes: 32544-A/U INPATIENT CONSULT (HIGH) MONICA VILLAR DO Aug 18, 2024 06:54
[2024-08-18 06:55] LABS: Anion Gap 8 (5-15); Carbon Dioxide 27 mmol/L (20-31)
[2024-08-18 07:00] LABS: Glucose 95 mg/dL (74-106)
[2024-08-18 07:07] LABS: Blood Urea Nitrogen 7 mg/dL (9-23)
[2024-08-18] MEDS ORDERED: LIDOCAINE 2%HCL (LOCAL ANESTH.) INJ 10ml MDV ONE (08:04)
[2024-08-18] MEDS ORDERED: fentaNYL CITRATE 100 MCG/2 ML VL ONE (08:14)
[2024-08-18] MEDS ORDERED: MIDAZOLAM HCL 2MG/2ML 2ml VIAL (1mg/ml) ONE (08:14)
[2024-08-18 09:00] VITALS: BP 147/85; PULSE 97; RESP 18; TEMP 98.4; O2SAT 96
[2024-08-18] MEDS ORDERED: PANT40T PO (09:37)
[2024-08-18] MEDS ORDERED: MET500T PO (09:37)
[2024-08-18] MEDS ORDERED: CIPR500T4 PO (09:37)
--- NOTE | 2024-08-18 09:40 | DVH ---
CT PELVIS WO CONTRAST, HISTORY: PELVIC ABSCESS DRAIN for suspected pelvic abscess. COMPARISON: MRI PELVIS WO W CONTRAST MRI on DOS: 08/16/24, US PELVIC on DOS: 08/15/24 PROCEDURE: Informed consent was obtained. The patient was placed supine on the CT scanner. IV sedatio n was administered. The fluid collection was localized under CT scan and the overlying skin prepped w ith chlorhexidine which was allowed to dry and draped in the usual sterile fashion and infiltrated wi th Xylocaine. Time out was performed. With CT guidance, a 19-gauge centesis needle catheter was advan dioni via trans-peritoneal approach into the fluid collection. Following aspiration, no fluid could be aspirated. The catheter was removed. Then a 17/18 gauge co-axial Temno biopsy device was placed into the mass and two core samples were obtained. The biopsy device was removed and a post procedure CT sc an was performed. No immediate complication was noted. Post procedure CT imaging through the drain s ite was obtained. DLP = 2989 mGy-cm. SEDATION: Dr. Soy Louise was personally responsible for the administration of moderate sedation during the procedure performed, including the use of an independent trained observer who had no other duties during the procedure. The drugs utilized were IV fentanyl and versed (see nursing log for details). The total time of supervision by the attending physician was approximately 45 minutes. FINDINGS: Limited CT scan of through the pelvis demonstrates a large sized fluid collection /mass in the anterior pelvis. Mass appears complex. No immediate complication was identified. IMPRESSION: Core biopsy of the suspected anterior pelvic mass. Initial attempt to place a drain was aborted due t o no purulent fluid able to be aspirated with initial centesis needle catheter placement.
--- NOTE | 2024-08-18 09:40 | DVHPN2 ---
Chief Complaints Patient reports: No new complaints, Feels better Nursing reports: No new complaints Objective Vitals Vital Signs Date Time Temp Pulse Resp B/P (MAP) Pulse Ox O2 Delivery O2 Flow Rate FiO2 08/18/24 05:00 98.4 86 18 108/71 (83) 97 98.4 Medications Current Medications Medications (Trade) Dose Ordered Sig/Andres Route PRN Reason Start Time Stop Time Status Last Admin Ondansetron HCl (Zofran) 4 mg Q4HPRN PRN IV NAUSEA / VOMITING 08/17/24 18:15 08/17/24 18:37 Abdominal: Soft, Non tender Extremities: Normal Studies Laboratory Tests 08/18/24 06:04 Test 08/18/24 06:04 Range/Units Serum Glucose 95 74-106 mg/dL Ass/Plan Assessment pelvic mass most likely malignancy Plan bx no pus ,pt needs to fu out pt tmw so we can send ehr to dr hua for rn ed/onc spoke to dr mcfadden to discuss the plan ,send pt home to fu tmw Visit Coding OBGYN Date of Service: Aug 18, 2024 Billing Provider: SULEIMAN MARTINEZ DO CUSTOMER SERVICE CORRESPONDENCE CLERK Common Visit Codes: [id number] INP/OBS CARE(HIGH) CUSTOMER SERVICE CORRESPONDENCE CLERK Consultation Codes: 01614-A/U INPATIENT CONSULT (HIGH) SULEIMAN MARTINEZ DO Aug 18, 2024 09:40
[2024-08-18 11:50] VITALS: BP 141/76; PULSE 71; RESP 16; TEMP 36.9; O2SAT 99
[2024-08-18 16:00] LABS: CRP High Sensitivity 9.17 mg/dL (<1.0)
--- NOTE | 2024-08-18 17:09 | DVHDSRES ---
Discharge Summary Date of Admission Resident Creating Document: [place]OPE[place] RESIDENT Aug 14, 2024 at 21:37 Date of Discharge: Aug 18, 2024 Labs/Diagnostic Data: Laboratory Results Test 08/18/24 06:04 08/17/24 06:09 08/15/24 09:00 08/15/24 00:28 White Blood Count 10.8 10^3/uL (4.4-10.8) Red Blood Count 4.23 10^6/uL (4.0-5.20) Hemoglobin 12.4 g/dL (12.2-16.2) Hematocrit 37.3 % (36.0-46.0) Mean Corpuscular Volume 88.1 fL (80.0-100.0) Mean Corpuscular Hemoglobin 29.4 pg (28.0-32.0) Mean Corpuscular Hemoglobin Concent 33.4 g/dL (32.0-36.0) Red Cell Distribution Width 14.2 % (11.8-14.3) Platelet Count 414 10^3/uL (140-450) Mean Platelet Volume 8.0 fL (6.9-10.8) Neutrophils (%) (Auto) 68.1 % (37.0-80.0) Lymphocytes (%) (Auto) 20.8 % (10.0-50.0) Monocytes (%) (Auto) 8.3 % (0.0-12.0) Eosinophils (%) (Auto) 2.2 % (0.0-7.0) Basophils (%) (Auto) 0.6 % (0.0-2.0) Neutrophils # (Auto) 7.4 10 ^3/uL (1.6-8.6) Lymphocytes # (Auto) 2.2 10 ^3/uL (0.4-5.4) Monocytes # (Auto) 0.9 10 ^3/uL (0-1.3) Eosinophils # (Auto) 0.2 10 ^3/uL (0-0.8) Basophils # (Auto) 0.1 10 ^3/uL (0-0.2) Nucleated Red Blood Cells 0.0 % Sodium Level 140 mmol/L (136-145) Potassium Level 4.1 mmol/L (3.5-5.1) Chloride Level 105 mmol/L (98-107) Carbon Dioxide Level 27 mmol/L (20-31) Anion Gap 8 (5-15) Blood Urea Nitrogen 7 mg/dL (9-23) Creatinine 0.54 mg/dL (0.550-1.02) Glomerular Filtration Rate Calc 112 mL/min (>90) BUN/Creatinine Ratio 13.0 (10.0-20.0) Serum Glucose 95 mg/dL (74-106) Calcium Level 10.3 mg/dL (8.7-10.4) C-Reactive Protein High Sensitivity 9.17 mg/dL (<1.0) Total Bilirubin 0.4 mg/dL (0.2-1.0) Direct Bilirubin 0.2 mg/dL (<0.3) Aspartate Amino Transferase (AST) 28 U/L (13-40) Alanine Aminotransferase (ALT) 61 U/L (7-40) Alkaline Phosphatase 147 U/L (46-116) Total Protein 6.2 g/dL (5.7-8.2) Albumin 3.9 g/dL (3.2-4.8) Carcinoembryonic Antigen < 0.50 ng/mL (<=5.0) Prothrombin Time 11.2 sec (9.3-11.8) Prothrombin Time INR 1.06 (0.9-1.15) Activated Partial Thromboplast Time 31.1 SEC (24.5-34.5) Phosphorus Level 3.3 mg/dL (2.4-5.1) Magnesium Level 1.8 mg/dL (1.6-2.6) Rapid Plasma Reagin Non reactive (Non Reactive) Hepatitis A IgM Antibody Negative Hepatitis B Surface Antigen Negative (Negative) Hepatitis B Core IgM Antibody Negative (Negative) Hepatitis C Antibody Negative (Negative) HIV (1&2) Antibody Negative (Negative) Troponin I High Sensitivity < 3 ng/L (</=34) Test 08/14/24 16:51 08/14/24 16:00 Hemoglobin A1c 5.2 % A1C (<5.7) Lactic Acid Level 1.1 mmol/L (0.4-2.0) Triglycerides Level 111 mg/dL (< 150) Cholesterol Level 168 mg/dL (< 200) LDL Cholesterol 105 mg/dL (< 100) HDL Cholesterol 48 mg/dL (40-59) Lipase 22 U/L (12-53) Beta HCG, Quantitative 0.7 mIU/mL (1.5-4.2) Urine Color Dark-orange (Yellow) Urine Clarity Turbid (Clear) Urine pH 6.0 (5.0-9.0) Urine Specific Odd 1.029 (1.001-1.035) Urine Protein 1+ (Negative) Urine Ketones Trace (Negative) Urine Blood 1+ /uL (Negative) Urine Nitrite Negative (Negative) Urine Bilirubin 1+ (Negative) Urine Urobilinogen 4 mg/dL (Negative) Urine Leukocyte Esterase 3+ /uL (Negative) Urine RBC 7 /hpf (0 - 4) Urine Microscopic WBC 51 /HPF (0-5) Urine Squamous Epithelial Cells Mod /hpf (<5) Urine Bacteria Few /hpf (None Seen) Urine Hyaline Casts Few /lpf (0 - 2) Urine Mucus Few (None Seen) Urine Glucose Trace mg/dL (Normal) Urine Test Negative (Negative) Other Laboratory Tests 08/18/24 06:04 Brief Hx & Hospital Course: Jessica Fisher is a 49-year-old female patient who presented to the ED with chief complaint of lower abdominal/pelvic pain. The patient states that pain started on 08/12/2024 and it was localized in the pelvic/pubic area radiating to bilateral left and right lower quadrants and back. Patient described the pain as aching/stabbing in nature, constant and intensity 10/10. Patient states that moving around lying down makes the pain worse but resting without movement makes it better. Patient also reported fever/chills that started on 08/10/2024 before the appearance of the lower pelvic pain. Patient states that last bowel movement was performed today in the a.m. Patient also reports intentional weight loss of 35 lb in the past year and a half due to Ozempic therapy. Denies other symptoms Past medical history: Prediabetes, dyslipidemia Past surgical History: 2 C- sections in 2004 and 2009 Family history: Noncontributory Past social history: Alcohol occasionally, no smoking or drugs and lives with the family. Allergies denies Home medication: Ozempic Brief hospital course: Sepsis secondary secondary to UTI versus pelvic infection in patient with probable we will ovarian malignancy, requiring on admission IV fluids and empiric IV antibiotic (ceftriaxone, doxycycline and metronidazole). Completed abdomen and pelvis CT and MRI:left 11.3 complex fluid collection (probable tubo-ovarian abscess versus malignancy. All cultures that were obtained were negative. Completed STI screening, pending (HIV negative at the moment) Evaluated by aluminum siding mechanic specialist, who suggested biopsy by IR, which was completed on 08/18/2024, and could not obtain any purulent fluid from collection (suggesting malignancy). Patient hemodynamically stable, asymptomatic, in condition to be discharged home. Was granted under optimal medical therapy (ciprofloxacin and metronidazole), gave advice on healthy lifestyle habits, and follow-up as outpatient with PCP, aluminum siding mechanic specialist, and eventual onco-public affairs officer for follow up for eventual staging. DIAGNOSIS # Sepsis secondary to UTI versus pelvic infection # Acute lower abdominal pain likely due to tubo-ovarian abscess, R/O ovarian malignancy # Ruled out small-bowel obstruction # Rule out ovarian malignancy # Ruled out pancreatitis # UTI # Prediabetes - controlled (hemoglobin A1c 5.2%) # Dyslipidemia Goals of care discussed with the patient at bedside for >23min, FULL CODE Discussed plan with Dr. Aguayo, patient and nurses. Examination Patient lying in bed, in no acute distress General: Lucid, afebrile, mucosae are moist Cardiovascular: Normal S1 and S2. No murmurs, gallops or rubs Respiratory: Normal ventilation mechanics. Clear lung sounds on auscultation Abdomen: Soft, tenderness spontaneously and on superficial palpation of lower quadrants of abdomen, hard mass in suprapubic area, no organomegaly, reduced bowel sounds MSK/skin: Mobilizes 4 limbs. Skin is dry and warm Neurological: Oriented in 3 spheres. No motor no sensitive deficits. Pupils are isocoric and reactive Operations or Procedures CT PELVIS WO CONTRAST, HISTORY: PELVIC ABSCESS DRAIN for suspected pelvic abscess. COMPARISON: MRI PELVIS WO W CONTRAST MRI on DOS: 08/16/24, US PELVIC on DOS: 08/15/24 PROCEDURE: Informed consent was obtained. The patient was placed supine on the CT scanner. IV sedation was administered. The fluid collection was localized under CT scan and the overlying skin prepped with chlorhexidine which was allowed to dry and draped in the usual sterile fashion and infiltrated with Xylocaine. Time out was performed. With CT guidance, a 19-gauge centesis needle catheter was advanced via trans-peritoneal approach into the fluid collection. Following aspiration, no fluid could be aspirated. The catheter was removed. Then a 17/18 gauge co-axial Temno biopsy device was placed into the mass and two core samples were obtained. The biopsy device was removed and a post procedure CT scan was performed. No immediate complication was noted. Post procedure CT imaging through the drain site was obtained. DLP = 2989 mGy-cm. SEDATION: Dr. Soy Louise was personally responsible for the administration of moderate sedation during the procedure performed, including the use of an independent trained observer who had no other duties during the procedure. The drugs utilized were IV fentanyl and versed (see nursing log for details). The total time of supervision by the attending physician was approximately 45 minutes. FINDINGS: Limited CT scan of through the pelvis demonstrates a large sized fluid collection /mass in the anterior pelvis. Mass appears complex. No immediate complication was identified. IMPRESSION: Core biopsy of the suspected anterior pelvic mass. Initial attempt to place a drain was aborted due to no purulent fluid able to be aspirated with initial centesis needle catheter placement. ATED BY: PAXTON LOUISE MD DICTATED DATE/TIME: 08/18/24 0938 CHEST RADIOGRAPH Indication: Pain Technique: Single frontal view of the chest was obtained COMPARISON: None FINDINGS: Lines and Tubes: None Lungs: Clear Pleura: No effusion. No pneumothorax. Cardiomediastinal contours: Unremarkable Bones: Unremarkable IMPRESSION: No acute disease. ATED BY: YOSEPH THOMPSON MD DICTATED DATE/TIME: 08/16/24 1200 EXAM: MRI PELVIS WO W CONTRAST MRI HISTORY: PELVIC PAIN COMPARISON: US PELVIC on DOS: 08/15/24 TECHNIQUE: Multiplanar, multisequence MRI of the pelvis was performed. FINDINGS: A large, 11.3 x 8.4 x 7.5 cm complex lobular fluid collection with partial septations, mural thickening posteriorly and extensive surrounding inflammation noted in the upper pelvis proximal to uterine fundus abutting the bilateral ovaries and left paramedian ventral pelvic wall with evidence of retraction of the overlying pelvic wall. The uterus is anteverted measuring 8.5 cm in length. Myometrium is heterogeneous with evidence of adenomyosis. No uterine leiomyomas noted. Several subcentimeter nabothian cysts are seen in the cervix. The endometrium is normal thickness measuring 2 cm. Bilateral ovaries are poorly evaluated due to the adjacent cystic mass. Small amount of free fluid noted in cul-de-sac. No pelvic or inguinal lymphadenopathy noted. IMPRESSION: 1. Large, 11.3 cm complex fluid collection with extensive surrounding inflammation that may represent tubo-ovarian abscess or cystic ovarian neoplasm. Recommend excisional biopsy. No pelvic sidewall lymphadenopathy. ATED BY: ITZEL CLEARY MD DICTATED DATE/TIME: 08/16/24 1710 Procedure: CT CT AB PEL WITH IV CON ONLY 08/14/2024 07:00 PM Indication: pelvic mass Comparison Study: CT scan dated 08/14/2024 Technique: Axial images were obtained and reformatted in coronal and sagittal planes after administration of intravenous contrast. All CT scans at this medical facility are performed using dose modulation techniques as appropriate to a performed exam including the following: Automated exposure control was utilized; adjustment of the MA and/or KV according to patient size; and use of iterative reconstruction technique. CT Dose: CTDI volume is 18 mGy. Dose-length product is 1030 mGy*cm FINDINGS: Lower neck: Unremarkable. Cardiomediastinal: The heart is normal in size. Aorta is normal in caliber. No mediastinal lymphadenopathy. Lungs: No focal pulmonary opacity. No pleural effusion. No pneumothorax. Hepatobiliary: Unremarkable. Spleen: Unremarkable. Pancreas: Unremarkable. Adrenal Glands: Unremarkable. tract: The kidneys are normal in size bilaterally without hydronephrosis or nephrolithiasis. The urinary bladder is unremarkable. GI tract: The stomach is grossly normal in appearance. Nondistended fluid-filled small bowel loops are seen in the left hemiabdomen and lower abdomen with mild adjacent mesenteric edema. Trace fluid is seen in the lower abdomen. No evidence of small bowel obstruction. There is sigmoid diverticulosis without diverticulitis. The appendix is normal. Lymphatics: No mesenteric, retroperitoneal or periportal lymphadenopathy. Vasculature: The abdominal aorta is normal in in caliber. Pelvic Organs: Redemonstration of large, 11.3 x 7.8 cm multi-septated pelvic mass anterior and superior to the uterus abutting bilateral ovaries with moderate surrounding fat stranding. Small amount of free fluid is seen in the cul-de-sac. Bones/soft tissues: No acute abnormality. Other: None. IMPRESSION: 1. Nondistended fluid-filled small bowel loops in mid to lower abdomen with mild adjacent mesenteric edema that may represent ileus, enteritis or developing obstruction. Correlate clinically. No evidence of perforation. 2. Redemonstration of complex multi septated 11.3 cm pelvic mass abutting the bilateral ovaries with moderate surrounding fat stranding concerning for ovarian malignancy. Differential diagnosis includes tubo-ovarian abscess. Recommend clinical and biochemical correlation. Further evaluation with pelvic ultrasound, female pelvis MRI without and with IV contrast could be completed if clinically warranted. ATED BY: ITZEL CLEARY MD DICTATED DATE/TIME: 08/14/241930 EXAM: CT Abdomen and Pelvis Without Intravenous Contrast CLINICAL INDICATION: pain TECHNIQUE: Axial computed tomography images of the abdomen and pelvis without intravenous contrast. This CT exam was performed using one or more of the following dose reduction techniques: automated exposure control, adjustment of the mA and/or kV according to patient size, and/or use of iterative reconstruction technique. CONTRAST: COMPARISON: None FINDINGS: LUNG BASES: Unremarkable. No mass. No consolidation. ABDOMEN: LIVER: Hepatomegaly with fatty infiltration. GALLBLADDER AND BILE DUCTS: Unremarkable. No calcified stones. No ductal dilation. PANCREAS: Unremarkable. No ductal dilation. SPLEEN: Unremarkable. No splenomegaly. ADRENALS: Unremarkable. No mass. KIDNEYS AND URETERS: Unremarkable. No obstructing stones. No hydronephrosis. STOMACH AND BOWEL: Unremarkable. No obstruction. No mucosal thickening. PELVIS: APPENDIX: No findings to suggest acute appendicitis. BLADDER: Unremarkable. No stones. REPRODUCTIVE: Unremarkable as visualized. ABDOMEN and PELVIS: INTRAPERITONEAL SPACE: Ill-defined isodense lesion in the anterior pelvis measures up to 10.8 cm could represent neoplastic process. Further evaluation with multiphasic CT abdomen and pelvis is recommended. No free air. No significant fluid collection. BONES/JOINTS: No acute fracture. No dislocation. SOFT TISSUES: Unremarkable. VASCULATURE: Unremarkable. No abdominal aortic aneurysm. LYMPH NODES: Unremarkable. No enlarged lymph nodes. OTHER FINDINGS: . None. . .. IMPRESSION: 1. Ill-defined isodense lesion in the anterior pelvis measures up to 10.8 cm could represent neoplastic process. Further evaluation with multiphasic CT abdomen and pelvis is recommended. 2. Hepatomegaly with fatty infiltration. Findings were discussed with Dr. Arthur by phone on 08/14/2024 at 6:00 p.m. ATED BY: PAT ALEXANDER MD DICTATED DATE/TIME: 08/14/24 1800 Condition at Discharge: Fair Final Diagnosis/Problems List # Sepsis secondary to UTI versus pelvic infection # Acute lower abdominal pain likely due to tubo-ovarian abscess, R/O ovarian malignancy # Ruled out small-bowel obstruction # Rule out ovarian malignancy # Ruled out pancreatitis # UTI # Prediabetes - controlled (hemoglobin A1c 5.2%) # Dyslipidemia Discharge Disposition: Home SNF Discharge Will this Physician continue t: No Discharge Instruct/Medications Diet: Regular Activity: No Restrictions, As Tolerated Follow Up/Referral: PCP [facility] (Dr Bee locally and Higher level of care) Medications: Ciprofloxacin and metronidazole for 10 days Discharge Statement: "Patient was advised to return to the ER or call 911 if any headaches, dizziness, shortness of breath, chest pain, abdominal pain, bleeding, fevers, or worsening of medical condition. Patient was counseled about treatment plan, medications, possible side effects, patientverbalized understanding. All questions were answered to the best of my ability. This discharge took greater then 30 minutes in planning, reviewing documentation, counseling the patient, and discussing with other team members." ASSESSMENT ASSESSMENT Assessment Tubo-ovarian malignancy Date of Service: Aug 18, 2024 Billing Provider: PAULINE AGUAYO MD Common Visit Codes: 03432-YCH/OBS DISCH DAY >30min Coding Comment Comment Case discussed with dr Bee, per dr Bee patient to follow up at her clinic tomorrow for referral to [facility]. Discussed with family and patient, they understand the plan. [place]OPE[place] RESIDENT Aug 18, 2024 17:09 PAULINE AGUAYO MD Aug 19, 2024 09:11
== END 2024-08-18 13:37 | disposition home or self-care (01) | DRG 720 ==
LOC: ER 16:00 → OVERFLOW 21:37 → WEST WING 08-15 02:14
PROVIDERS: ADMIT Student in an Organized Health Care Education/Training Program; ATTEND General Practice
PROC: 0WBH3ZX Excision of Retroperitoneum, Percutaneous Approach, Diagnostic (ICD-10-PCS; principal; 2024-08-18)
DX: A41.9 Sepsis, unspecified organism (principal); D64.9 Anemia, unspecified; E78.5 Hyperlipidemia, unspecified; N30.00 Acute cystitis without hematuria; N70.93 Salpingitis and oophoritis, unspecified; R73.03 Prediabetes; Z78.0 Asymptomatic menopausal state; Z98.891 History of uterine scar from previous surgery; Z79.899 Other long term (current) drug therapy
CPT/HCPCS: 10005; 36415; 71045; 72192; 73723; 74176; 74177; 76705; 76830; 76856; 77012; 80048; 80053; 80061; 80074; 80076; 81001; 81025; 82378; 83036; 83605; 83690; 83735; 84100; 84484; 84702; 85025; 85610; 85730; 86141; 86304; 86592; 86703; 87040; 87070; 87077; 87086; 87186; 96361; 96365; 96367; 99291; G0378; J0696; J1885; J2003; J2250; J2405; J2470; J3490; Q0162